=== PATIENT | female | born 1935 | race Caucasian/White ===

== ENCOUNTER 2016-08-15 18:00 | Inpatient (IN) | payer OTHER ==
[~2016-08-15] VITALS: Ht 152.4 cm; Wt 61.2 kg
[2016-08-15 19:14] LABS: microscopic required? YES; urine erythrocyte TRACE (NEGATIVE)
[2016-08-15 19:19] LABS: BASOPHIL % 0.5 % (0-2); PLATELET COUNT 164 x10^3mcL (130-400); RED CELL DISTRIBUTION WIDTH 13.6 % (11.5-14.5)
[2016-08-15 19:32] LABS: AMPHETAMINE QUAL UR NONE DETECTED (NEG <=1000)
[2016-08-15 19:37] LABS: ALBUMIN 3.8 g/dL (3.4-5.0); ALKALINE PHOSPHATASE 171 U/L (46-116); ALT/SGPT 15 U/L (14-59); AMYLASE 93 U/L (25-115); AST/SGOT 31 U/L (15-37); CALCIUM 9.5 mg/dL (8.5-10.1); CARBON DIOXIDE 24.5 mmol/L (21-32); CHLORIDE SERUM 103 mmol/L (98-107); CREATININE SERUM 1.5 mg/dL (0.6-1.0); GLUCOSE SERUM 390 mg/dL (74-106); HDL CHOLESTEROL 49 mg/dL (40-60); LIPASE 185 IU/L (73-393); SODIUM SERUM 136 mmol/L (136-145); T4(THYROXINE) 6.7 ug/dL (4.7-13.3); TOTAL PROTEIN, SERUM 8.1 g/dL (6.4-8.2)
[2016-08-15 19:39] LABS: CHOLESTEROL 127 mg/dL (<200)
[2016-08-15 19:40] LABS: POTASSIUM SERUM 6.3 mmol/L (3.5-5.1)
[2016-08-15] MEDS ORDERED: OMEPRAZOLE40 M1 PO (20:25)
[2016-08-15] MEDS ORDERED: TYLENOL WITH CO1 TA2 PO (20:25)
[2016-08-15] MEDS ORDERED: LOVASTATIN40 MG PO (20:26)
[2016-08-15] MEDS ORDERED: GLUCOTROL10 MG PO (20:26)
[2016-08-15] MEDS ORDERED: GEMFIBROZIL600 MG PO (20:26)
[2016-08-15] MEDS ORDERED: ZESTRIL20 MG PO (20:27)
[2016-08-15 22:12] VITALS: BP 172/79
[2016-08-15 22:30] VITALS: BP 172/79
[2016-08-15 22:55] VITALS: BP 154/67
[2016-08-15 23:39] LABS: MAGNESIUM 1.6 mg/dL (1.8-2.4); PHOSPHOROUS 3.6 mg/dL (2.5-4.9)
[2016-08-16 01:41] LABS: CALCIUM 9.3 mg/dL (8.5-10.1); CARBON DIOXIDE 23.9 mmol/L (21-32); CHLORIDE SERUM 108 mmol/L (98-107); CREATININE SERUM 1.2 mg/dL (0.6-1.0); GLUCOSE SERUM 220 mg/dL (74-106); SODIUM SERUM 142 mmol/L (136-145)
[2016-08-16 06:03] VITALS: BP 128/66
[2016-08-16 06:31] LABS: BASOPHIL % 0.6 % (0-2); PLATELET COUNT 140 x10^3mcL (130-400); RED CELL DISTRIBUTION WIDTH 13.7 % (11.5-14.5)
[2016-08-16 06:55] LABS: CALCIUM 9.2 mg/dL (8.5-10.1); CARBON DIOXIDE 21.9 mmol/L (21-32); CHLORIDE SERUM 108 mmol/L (98-107); CREATININE SERUM 1.1 mg/dL (0.6-1.0); GLUCOSE SERUM 209 mg/dL (74-106); MAGNESIUM 2.3 mg/dL (1.8-2.4); PHOSPHOROUS 3.4 mg/dL (2.5-4.9); POTASSIUM SERUM 4.5 mmol/L (3.5-5.1); SODIUM SERUM 142 mmol/L (136-145)
[2016-08-16 15:05] VITALS: BP 148/56
[2016-08-16 18:22] VITALS: BP 157/61
[2016-08-16 22:32] VITALS: BP 126/59
[2016-08-17 05:46] VITALS: BP 125/56
[2016-08-17 06:18] LABS: BASOPHIL % 0.4 % (0-2); PLATELET COUNT 135 x10^3mcL (130-400); RED CELL DISTRIBUTION WIDTH 13.4 % (11.5-14.5)
[2016-08-17 06:27] LABS: CALCIUM 8.6 mg/dL (8.5-10.1); CARBON DIOXIDE 19.6 mmol/L (21-32); CHLORIDE SERUM 108 mmol/L (98-107); CREATININE SERUM 1.1 mg/dL (0.6-1.0); GLUCOSE SERUM 187 mg/dL (74-106); POTASSIUM SERUM 4.4 mmol/L (3.5-5.1); SODIUM SERUM 142 mmol/L (136-145)
[2016-08-17 09:09] VITALS: BP 134/65
[2016-08-17] MEDS ORDERED: ECO81 PO (11:31)
[2016-08-17] MEDS ORDERED: LEVAQUIN250 M1 PO (11:37)
[2016-08-17] MEDS ORDERED: LAC PO (11:38)
[2016-08-17] MEDS ORDERED: NORCO1 TA2 PO (11:39)
[2016-08-17] MEDS ORDERED: COL100 PO (11:40)
[2016-08-17 13:28] VITALS: BP 134/65
== END 2016-08-17 14:55 | disposition home or self-care (01) | DRG 562 ==
LOC: ED 18:00 → DU 19:55
PROVIDERS: Emergency Medicine; Neuromusculoskeletal Medicine, Sports Medicine; ADMIT Family Medicine
PROC: 0HQ1XZZ Repair Face Skin, External Approach (ICD-10-PCS; 2016-08-15)
PROC: 2W38X2Z Immobilization of Right Upper Extremity using Cast (ICD-10-PCS; principal; 2016-08-16 13:45)
DX: S52.614A Nondisplaced fracture of right ulna styloid process, initial encounter for closed fracture (principal); N17.0 Acute kidney failure with tubular necrosis; N18.4 Chronic kidney disease, stage 4 (severe); E78.5 Hyperlipidemia, unspecified; S01.111A Laceration without foreign body of right eyelid and periocular area, initial encounter; S52.514A Nondisplaced fracture of right radial styloid process, initial encounter for closed fracture; E11.65 Type 2 diabetes mellitus with hyperglycemia; I12.9 Hypertensive chronic kidney disease with stage 1 through stage 4 chronic kidney disease, or unspecified chronic kidney disease; S80.02XA Contusion of left knee, initial encounter; S80.01XA Contusion of right knee, initial encounter; E87.5 Hyperkalemia; I16.0 Hypertensive urgency; E83.41 Hypermagnesemia; D64.9 Anemia, unspecified; Z79.4 Long term (current) use of insulin; Z79.84 Long term (current) use of oral hypoglycemic drugs; Z85.3 Personal history of malignant neoplasm of breast; W18.39XA Other fall on same level, initial encounter; Y93.89 Activity, other specified; Y92.098 Other place in other non-institutional residence as the place of occurrence of the external cause
CPT/HCPCS: 80307; 82962; 83880; 97110-GP; J1644; J1815; J1956; J2001; J2270; J3475; J3490; J7030; Q0092

== ENCOUNTER 2016-08-18 21:04 | Inpatient (IN) | payer OTHER ==
[~2016-08-18] VITALS: Ht 152.4 cm; Wt 73.2 kg
[~2016-08-18 21:04] MED LIST: COL100 PO; ECO81 PO; GEMFIBROZIL600 MG PO; GLUCOTROL10 MG PO; LAC PO; LEVAQUIN250 M1 PO; LOVASTATIN40 MG PO; NORCO1 TA2 PO; OMEPRAZOLE40 M1 PO; TYLENOL WITH CO1 TA2 PO; ZESTRIL20 MG PO
--- NOTE | 2016-08-18 21:46 | NUR ---
RECEIVED A 81 YEAR OLD FEMALE IN ROOM ORTHO BIB [facility] WITH C/O SHORTNESS OF BREATH STARTING AT 1900 TODAY. PER PT DAUGTHER, PT WAS DISCHARGED [place] [facility] [place] FOR UTI AND FACIAL LACERATION FROM A FALL. PT AAOX4, RESPIRATORY EVEN AND LABORIOUS. PT PLACED ON OXYGEN 4 L BAGGED MASK, FULL DELIVERY TECHNICIAN. CALL LIGHT WITHIN REACH, WILL CONTINUE TO MONITOR.
--- NOTE | 2016-08-18 22:16 | NUR ---
PT ON JOHANN IN POSITION OF COMFORT, AAOX4, RESP EVEN AND UNLABORED, ON FULL CM, OXYGEN AT 4L BAGGED MASK. FAMILY AT BEDSIDE. CALL LIGHT WITHIN REACH, WILL CONTINUE TO MONITOR.
--- NOTE | 2016-08-18 22:35 | NUR ---
PT PLACED ON 2 L OXYGEN VIA NC. PT AAOX4, RESP EVEN AND UNLABORED, IN POSITION OF COMFORT. CALL LIGHT WITHIN REACH, WILL CONTINUE TO MONITOR.
[2016-08-18 22:45] LABS: UA SPECIFIC GRAVITY 1.015 (1.005-1.035); microscopic required? YES; urine erythrocyte 1+ (NEGATIVE)
[2016-08-18 22:47] LABS: BASOPHIL % 0.2 % (0-2); PLATELET COUNT 148 x10^3mcL (130-400); RED CELL DISTRIBUTION WIDTH 12.9 % (11.5-14.5)
[2016-08-18 23:04] LABS: ALKALINE PHOSPHATASE 145 U/L (46-116); ALT/SGPT 18 U/L (14-59); AST/SGOT 37 U/L (15-37); BILIRUBIN TOTAL 0.55 mg/dL (0.20-1.00); CALCIUM 8.3 mg/dL (8.5-10.1); CARBON DIOXIDE 19.9 mmol/L (21-32); CHLORIDE SERUM 102 mmol/L (98-107); CREATININE SERUM 1.4 mg/dL (0.6-1.0); MAGNESIUM 1.4 mg/dL (1.8-2.4); POTASSIUM SERUM 4.1 mmol/L (3.5-5.1); SODIUM SERUM 135 mmol/L (136-145); TOTAL PROTEIN, SERUM 7.1 g/dL (6.4-8.2)
[2016-08-18 23:11] LABS: GLUCOSE SERUM 521 mg/dL (74-106)
[2016-08-19] VITALS (8 sets, daily range): BP systolic 113–142; BP diastolic 39–68
--- NOTE | 2016-08-19 00:25 | NUR ---
PER DR WASHINGTON, NO LONGER DOING CT WITH ANGIO DUE TO POOR RENAL FUNCTION.
--- NOTE | 2016-08-19 00:41 | NUR ---
PT MEDICATED FOR PAIN.
--- NOTE | 2016-08-19 00:54 | NUR ---
REPORT GIVEN TO DEB URBINA TO ASSUME CARE.
[2016-08-19 01:01] LABS: PHOSPHOROUS 3.7 mg/dL (2.5-4.9)
[2016-08-19 01:02] LABS: CHOLESTEROL/HDL RATIO 2.6
[2016-08-19 01:10] LABS: FREE T4 1.44 ng/dL (0.76-1.46); FREE THYROXINE INDEX 2.6 ug/dL (1.4-4.5); T4(THYROXINE) 6.9 ug/dL (4.7-13.3)
[2016-08-19 01:13] LABS: T3 TOTAL 0.71 ng/mL
--- NOTE | 2016-08-19 01:33 | NUR ---
RECEIVED PT FROM ED VIA SUSI. ORIENTED PT TO ROOM AND SURROUNDINGS. IV NOTED TO ASHWIN PATENT AND INTACT. TELE 19 PLACED ON PT READING SR WITH DEPRESSED ST SEGMENT. INSTRUCTED PT ON THE USE OF CALL LIGHT FOR ASSISTANCE. ENDORSED PT TO PRIMARY NURSE CARLITOS
--- NOTE | 2016-08-19 03:16 | NUR ---
NEW ADM. FROM ER. PLACED COMFORTABLY IN BED. WITH DAUGHTER AT THE BEDSIDE. RESP. EVEN AND UNLABORED. [address], LUNGS SOUNDS DIM. SAT. 94% NO DISTRESS NOTED. AFEBRILE AND VITAL SIGNS STABLE . ON TELE #19, MONITOR SHOWS SR WITH DEPRESSED ST SEGMENT.DENIES CHEST PAIN OR PRESSURE. ABD. SOFT, NON TENDER. BS ACTIVE. NO N/V NOTED. S/P FALL X1 WEEK AGO PER DAUGHTER, CAST TO RT ARM ABLE TO MOVE EXT. , FINGERS SWOLLEN, HAND ELEVATED ON PILLOW. ABRASION TO RT SIDE OF FACE AND FOREHEAD. ALEXIS INTACT. STARTED ON HEPARIN DRIP PER PROTOCOL FOR ELEVATED TROP. HEPARIN DRIP INFUSING AT 800UNITS ( 8ML/HR). PTT DUE AT 0830. KEPT COMFORTABLE. CALL LIGHT WITHIN REACH. WILL CONTINUE TO MONITOR.
--- NOTE | 2016-08-19 05:20 | NUR ---
IV SITE INFILTRATTED , DISCONT. NEW IV SITE RESTARTED ON LT WRIST WITH #22G ANGIO. HEPARIN DRIP AND IVF INTACT AND INFUSING. ASSISTED TO BSC, HAD X1 LARGE LOOSE BM. CLEANED AND KEPT COMFORTABLE. COMPLAINED OF GEN. BODY PAIN, 5/10, MEDICATED WITH NORCO PO ORDERED. WILL CONTINUE TO MONITOR.
[2016-08-19 06:05] LABS: BASOPHIL % 0.4 % (0-2); PLATELET COUNT 144 x10^3mcL (130-400); RED CELL DISTRIBUTION WIDTH 13.6 % (11.5-14.5)
[2016-08-19 06:17] LABS: CALCIUM 8.7 mg/dL (8.5-10.1); CARBON DIOXIDE 19.8 mmol/L (21-32); CHLORIDE SERUM 103 mmol/L (98-107); CREATININE SERUM 1.3 mg/dL (0.6-1.0); GLUCOSE SERUM 396 mg/dL (74-106); MAGNESIUM 1.9 mg/dL (1.8-2.4); POTASSIUM SERUM 3.6 mmol/L (3.5-5.1); SODIUM SERUM 137 mmol/L (136-145)
[2016-08-19 06:29] LABS: ALBUMIN 2.8 g/dL (3.4-5.0)
--- NOTE | 2016-08-19 06:32 | NUR ---
DUE MEDS GIVEN ORDERED, SIXTO. WELL. COMFORTABLE . NO COMPLAINTS OF PAIN OR ANY DISCOMFORT AT THIS TIME. [address] VIA MASK, REMAINS ON RT PROTOCOL. NO DISTRESS NOTED. DAUGHTER AT THE BEDSIDE, VERY SUPPORTIVE OF CARE. AFEBRILE AND VITAL SIGNS STABLE. WILL ENDORSE TO INCOMING NURSE.
--- NOTE | 2016-08-19 09:00 | NUR ---
PT ON BED, AWAKE, ALERT, AND ORIENTED. HAS NO COMPLAINT OF PAIN, SOB, OR DIZZINESS. RESPONDS WELL TO QUESTION AND ANSWER. PT IS LATVIAN SPEAKING. DAUGHTER AT BEDSIDE. DIMINISHED MELANIA BASES ON MASK O2 WITH 10L, SYMMETRICAL CHEST EXPANSION AND UNLABORED. ACTIVE BOWEL SOUNDS NOTED. ABRASIONS NOTED ON THE FOREHEAD WITH [address] ON THE R HAND. SIDE RAILS UP, CALL LIG WITHIN REACH, WILL CONTINUE TO MONITOR
--- NOTE | 2016-08-19 09:45 | NUR ---
PER DR'S ORDER. HEAPRIN DRIP HAS BEEN D/C. WILL CONTINUE TO MONITOR
--- NOTE | 2016-08-19 12:00 | NUR ---
PT'S ACCUCHECK SHOWED 221. PT AND PT'S DAUGHTER REFUSED COVERAGE. TO BE MADE AWARE
[2016-08-19 17:46] LABS: CALCIUM 8.7 mg/dL (8.5-10.1); CARBON DIOXIDE 23.5 mmol/L (21-32); CHLORIDE SERUM 104 mmol/L (98-107); CREATININE SERUM 1.4 mg/dL (0.6-1.0); GLUCOSE SERUM 251 mg/dL (74-106); POTASSIUM SERUM 3.2 mmol/L (3.5-5.1); SODIUM SERUM 140 mmol/L (136-145)
--- NOTE | 2016-08-19 18:24 | NUR ---
PT'S ACCUCHECK SHOWED 245. PT'S DAUGHTER STATED HAVE IT RECHECKED TONIGHT MAYBE IT WILL GO DOWN WITHOUT INSULIN
--- NOTE | 2016-08-19 19:58 | NUR ---
AWAKE AND RESPONSIVE TO VERBAL STIMULU, SLOW TO RESPOND. DAUGHTER AT BEDSIDE , DAUGHTER CLAIMED PT HAS GENERALIZED TREOMOR WHICH LASTED TO A MIN. PT DENIES ANY PAIN/DISCOMFORT AT THIS TIME. DR DEUTSCH AT BEDSIDE ASSESSSING PATIENT. PLACED CALL LIGHT [facility]. WILL DO FREQUENT VISUAL CHECK FOR SAFETY.
--- NOTE | 2016-08-19 22:15 | NUR ---
BP AT 2130 =120/39, WITH MAP=57, DR DEUTSCH MADE AWARE AND ORDERED TO REPEAT TO TAKE BP AT SITTING/STANDING POSITION WHICH IS 113/39 WITH MAP=68. STATED TOMAITNAINED IVF NS AT 10ML/HR FOR NOWN AND WILL READJUST THE RATE ACCORDINGLY. WILL CONTINUE TO MONITOR. NO FURTHER TREMORS NOTED.
[2016-08-20 05:43] VITALS: BP 129/46
--- NOTE | 2016-08-20 06:36 | NUR ---
ALL DUE MEDICATIONS GIVEN AND WELL TOLERATED. NO S/S OF ASPIRATION NOTED. KEPT CLEAN AND DRY. ALL NEEDS ATTENDED.
[2016-08-20 06:46] LABS: CALCIUM 8.4 mg/dL (8.5-10.1); CARBON DIOXIDE 24.5 mmol/L (21-32); CHLORIDE SERUM 106 mmol/L (98-107); CREATININE SERUM 1.4 mg/dL (0.6-1.0); GLUCOSE SERUM 97 mg/dL (74-106); MAGNESIUM 1.6 mg/dL (1.8-2.4); PHOSPHOROUS 3.4 mg/dL (2.5-4.9); POTASSIUM SERUM 3.2 mmol/L (3.5-5.1); SODIUM SERUM 141 mmol/L (136-145)
[2016-08-20 06:47] LABS: BASOPHIL % 0.3 % (0-2); PLATELET COUNT 160 x10^3mcL (130-400)
--- NOTE | 2016-08-20 09:17 | NUR ---
PT ON BED, AWAKE, ALERT, AND ORIENTED. HAS NO COMPLAINT OF PAIN, SOB, OR DIZZINESS. RESPONDS WELL TO QUESTION AND ANSWER. PT IS TURKISH SPEAKING. DAUGHTER AT BEDSIDE. DIMINISHED MELANIA BASES ON NASAL C WITH 2L, SYMMETRICAL CHEST EXPANSION AND UNLABORED. ACTIVE BOWEL SOUNDS NOTED. ABRASIONS NOTED ON THE FOREHEAD WITH [address] ON THE R HAND. SIDE RAILS UP, CALL LIGH WITHIN REACH, WILL CONTINUE TO MONITOR
--- NOTE | 2016-08-20 12:00 | NUR ---
PT'S ACCUCHECK SHOWED 273. 9 UNITS OF REGULAR INSULIN GIVEN COVERAGE.
--- NOTE | 2016-08-20 12:29 | NUR ---
PER DR'S ORDER HEPARIN DRIP STARTED AT 1200 U/HR. WITH A LOADING DOSE OF 5300 UNITS.. WILL CONTINUE TO MONITOR
[2016-08-20 13:56] VITALS: BP 100/39
[2016-08-20 18:55] VITALS: BP 114/51
--- NOTE | 2016-08-20 19:30 | NUR ---
RECEIVED REPORT FROM DEB RAMIREZ. PT RESTING COMFORTABLY IN BED IN NO ACUTE DISTRESS OR DISCOMFORT. AAOX4. DENIES OF PABON/DIZZINESS. ON TELE MON [address] WAVE. DENIES OF ANY CHEST DISCOMFORT. PER PULSES MOD. NEG ON EDEMA. ON 2 L NC WITH SAT OF 96%. BREATHING EVENLY AND UNLABORED. NO SOB NOTED. LUNGS DIM. BS ACTIVE. LAST BM 07/22/16 FORMED STOOL PER PT. VOIDS FREELY WITHOUT ANY PAIN. GEN WEAKNESS. AMB ASSIST. PT SP FALL AT HOME AND HAS A R ARM CAST. PT ALSO ACQUIRED ABRASION ON R FOREHEAD WITH 2 ALEXIS, DRESSING APPLIED, CDI. ALSO ACQUIRED R CHEEK ABRASION THAT IS COATER HELPER, WITH NO DRAINAGE NOTED. ADMITS TO L SHOULDER PAIN. WILL MEDICATE PER PRN ORDER. IV ON L HAND INFILTRATED AND REPLACED WITH 20 G ON RFA. PT ON HEPARIN DRIP RUNNING AT 1200 U/HR. WILL WAIT FOR THE NEXT PTT RESULT. DAUGHTER IS ON THE BEDSIDE. SAFETY MEASURES ENSURED. CALL LIGHT WITHIN REACH. WILL CONT TO MONITOR PT.
--- NOTE | 2016-08-20 19:45 | NUR ---
NOTIFIED BY THE LAB WITH PTT VALUE OF >150 PER HEPARIN PROTOCOL GUIDELINE. HOLDING THE HEPARIN DRIP AT THIS TIME. WILL ORDER PTT AT 2145. SAFETY MEASURES ENSURED. DAUGHTER IS ON THE BEDSIDE. CALL LIGHT WITHIN REACH.
[2016-08-20 21:25] VITALS: BP 121/76
--- NOTE | 2016-08-20 23:06 | NUR ---
NOTIFIED BY LAB WITH PTT OF 68.4. DECREASING INFUSION TO 1100 UNITS/HR. VERIFIED WITH GEOVANY BOYD. WILL DRAW NEXT PTT AT 0306 OF 08/21/16. SAFETY MEASURES ENSURED. CALL LIGHT WITHIN REACH.
[2016-08-21 01:02] VITALS: Ht 152.4 cm; Wt 73.2 kg
[2016-08-21 03:47] LABS: PLATELET COUNT 192 x10^3mcL (130-400); RED CELL DISTRIBUTION WIDTH 13.3 % (11.5-14.5)
[2016-08-21 04:06] LABS: CALCIUM 8.5 mg/dL (8.5-10.1); CARBON DIOXIDE 25.9 mmol/L (21-32); CHLORIDE SERUM 106 mmol/L (98-107); CREATININE SERUM 1.8 mg/dL (0.6-1.0); GLUCOSE SERUM 64 mg/dL (74-106); MAGNESIUM 2.5 mg/dL (1.8-2.4); POTASSIUM SERUM 3.3 mmol/L (3.5-5.1); SODIUM SERUM 142 mmol/L (136-145)
--- NOTE | 2016-08-21 04:09 | NUR ---
NOTIFIED BY LAB, PT'S PTT AT 85.0. DECREASED INFUSION RATE TO 1000 U/HR. VERIFIED WITH DEB COTTO. SAFETY MEASURES ENSURED. PAIN MANAGEMENT ENFORCED. DAUGHTER STAYED THROUGH OUT THE NIGHT AND ON THE BEDSIDE. CALL LIGHT WITHIN REACH. WILL ORDER PTT AT 0809 OF TODAY.
[2016-08-21 06:33] VITALS: BP 114/40
--- NOTE | 2016-08-21 08:28 | NUR ---
RECIEVED REPORT FORM SHA RN, ASSESSMENT MADE, FAMILY MEMEBR AT THE BEDSIDE. PT IS AOX4, RR EVEN AND UNLABORED HR WNL, PULSES PRESENT NO S/S OF EDEMA. BOWEL SOUNDS ACTIVE IN 4 QAUDRANTS, PT IS CONTINENT WITH ASSISTANCE TO BEDSIDE COMODE, PT HAS GENERALIZED WEAKNESS WITH ASSITED AMBULATION, ABRASION ON RIGH FOREHEAD WITH 2 ALEXIS, ABRASION ON RIGHT CHEEK WITH HEALING SCAB, ABRASION ON RIGHT FOREARM WITH HEALING SCAB, ABRASION ON RIGHT KNEE WITH HEALING SCAB PT DENIES PAIN AT THE MOMENT, IV SIT IS PATENT AND INTACT, PT ABLE TO MAKE NEED KNOWN CALL LIGHT WITH IN REACH, WILL CONTINUE TO MONITOR FOR CHANGES
[2016-08-21 09:10] VITALS: BP 107/35
--- NOTE | 2016-08-21 10:45 | NUR ---
PT PTT WAS 84.4 PER HEPARIN PROTOCOL ADJUSTED THE RATE TO 900UNITS/HR WILL RECHCK PTT IN 4 HOURS
[2016-08-21 13:40] VITALS: BP 115/40
--- NOTE | 2016-08-21 15:35 | NUR ---
PT PTT WAS 69.9 PER HEPARIN PROTOCOL ADJUSTED RATE TO 800U/HR WILL RECHECK IN [address]RS[address] K PAD IN PLACE ON LEFT SHOULD PE VICKY WALLACE
[2016-08-21 17:06] VITALS: BP 121/50
--- NOTE | 2016-08-21 17:30 | NUR ---
PT IN BED RESTING QUIETLY, FAMILY AT BEDSIDE, MEDS GIVEN PER ORDER, DENIES PAIN, IV SITE INTACT, CALL LIGHT WITHIN REACH
--- NOTE | 2016-08-21 19:30 | NUR ---
RECEIVED REPORT FROM DEB RAMIREZ. PT RESTING IN BED IN NO ACUTE DISTRESS. AAOX4. DENIES OF PABON/DIZZINESS. ON TELE MON [address] WITH DEPRESSED T WAVE. PT STILL ON HEPARIN DRIP RUNNING AT 800 UNITS/HR. PER PULSES MOD. NEG ON EDEMA. IN RA WITH SAT OF 94%. BREATHING EVENLY AND UNLABORED. NO SOB. LUNGS DIM. LAST BM 08/20/16 FORMED STOOL PER PT. PT VOIDS FREELY ON THE BSC WITHOUT ANY PAIN. GEN WEAKNESS. AMB ASSIST. INTERM COMPLAINS OF R ARM ARTHRITIS PAIN. SP ON 08/15/16 AND ACQUIRED A WRIST FX. PT HAS RFA CAST. PT ALSO ACQUIRED R FOREARM ABRASION WITH TWO ALEXIS COVERED WITH DSNG THAT IS CDI. PT ALSO HAS R CHEEK AND KNEE ABRASION THAT IS MCKENZIE WITH NO DRAINAGE NOTED. K PAD APPLIED ON L SHOULDER. IV ON LFA PATENT. SAFETY MEASURES ENSURED. FAMILY IS ON THE BEDSIDE. CALL LIGHT WITHIN REACH. INSTRUCTED PT AND FAMILY TO CALL FOR ANY NEEDS/ASSISTANCE. WILL CONT TO MONITOR PT.
[2016-08-21 21:54] VITALS: BP 124/58
--- NOTE | 2016-08-21 22:16 | NUR ---
RECEIVED CALL FROM THE LAB REGARDING PT'S PTT RESULT WITH THE VALUE OF 59.5 WITH NO CHANGE IN INFUSION RATE NEEDED PER HEPARIN PROTOCOL GUIDELINE. WILL ORDER ANOTHER PTT LAB DRAW AT 0216 OF 08/22/16. SAFETY MEASURES ENSURED. DAUGHTER IS ON THE BEDSIDE. CALL LIGHT WITHIN REACH.
[2016-08-22 04:29] LABS: BASOPHIL % 0.7 % (0-2); PLATELET COUNT 201 x10^3mcL (130-400); RED CELL DISTRIBUTION WIDTH 14.8 % (11.5-14.5)
[2016-08-22 04:47] LABS: CALCIUM 8.3 mg/dL (8.5-10.1); CARBON DIOXIDE 23.6 mmol/L (21-32); CHLORIDE SERUM 104 mmol/L (98-107); CREATININE SERUM 2.1 mg/dL (0.6-1.0); GLUCOSE SERUM 106 mg/dL (74-106); PHOSPHOROUS 4.5 mg/dL (2.5-4.9); POTASSIUM SERUM 4.8 mmol/L (3.5-5.1); SODIUM SERUM 138 mmol/L (136-145)
--- NOTE | 2016-08-22 04:57 | NUR ---
NOTIFED BY LAB REGARDING PT'S PTT VALUE OF 51.5. VALUE ON THERAPEUTIC LEVEL WITH NO CHANGE IN INFUSION NEEDED. NEXT PTT LAB WILL BE ORDERED AT 08/23/16 AT 0500. SAFETY MEASURES ENSURED. CALL LIGHT WITHIN REACH.
--- NOTE | 2016-08-22 05:30 | NUR ---
PT SLEPT COMFORTABLY THROUGH OUT THE NIGHT. HAD PERIODS OF LABORED BREATHING AND GIVEN BREATHING TREATMENTS. DR DEUTSCH AWARE. DAUGHTER STAYED THROUGH OUT. NEXT PTT LAB ORDERED AT 0500 AT 08/23/16. SAFETY MEASURES ENSURED. CALL LIGHT WITHIN REACH.
[2016-08-22 06:07] VITALS: BP 108/44
--- NOTE | 2016-08-22 07:30 | NUR ---
PATIENT IS SITTING UP IN BED WITH DAUGHTER AT BEDSIDE. ALERT ORIENTED, FIJIAN SPEAKING, DOES SPEAK SOME AMERICAN. HEPARIN DRIP INFUSING WELL AT 800U/HR AND NS AT 10ML HR TO LEFT FA. CAST NOTED ON RT ARM. FINGERS WARM TO TOUCH AND PATIENT IS ABLE TO WIGGLE FINGERS, CAP REFILL GOOD. ASSISTED UP TO THE BSC PRN. SUTURES ON RT SIDE OF FOREHEAD GAMEROOM TECHNICIAN DRY AND INTACT. K-PAD TO SHOULDER IN PLACE. PATIENT AWAITING VQ SCAN THIS AM. DENIES ANY PAIN OR DISCOMFORT. O2 ON AT 2L VIA N/C SAT 96%. WILL CONTINUE TO MONITOR.
--- NOTE | 2016-08-22 08:05 | NUR ---
DR CASTRO AND MEDICAL TEAM INTO SEE PATIENT AND DISCUSS PLAN OF CARE.
[2016-08-22 09:22] VITALS: BP 107/36
--- NOTE | 2016-08-22 12:43 | NUR ---
P.T. NOTES EVAL30' PVEX2 [id number] GCODE:[id number] TUG SCORE: 13 SECS PT WAS SEEN FOR P.T. MIYA (LUISE) 1ST ATTMEPT PT WASN'T IN THE ROOM HAVING A VQ SCAN, UPON RETURN PT WAS SEATED ON EDGE OF BED WITH O2 INTACT AT 2L SHARDA GALICIA PRESENT AND BOTH VERY EAGER TO PARTICIPATE WITH P.T. PT CAME FROM HOME RECENTLY D/C FROM HOSPITAL D/T FALL; THEN HAD C/O SOB S: PT REPROTS OF BILAT SHOULDER PAIN AT 8/10 ON A SUBJ PAIN SCALE NRSG MADE AWRE AND WILL GIVE MEDS. O: PLS SEE EVAL NOTE SPO2 BEFORE: 97% ON 2L VIA NC; AFTER GAIT ON ROOM AIR: SPO2 AT 94-95% NO C/O DYSPNEA A: PT EDUCATED ON USE INCENTIVE SPIROMETER AND ENERGY CONSERVATION TECHNIQUES UPON DC TO HOME AND VERBALIZED GOOD UNDERSTANDING. PT PRESENTS WITH STEADY LINEAR GAIT AND WITH DIRECITONAL CHANGES FOR COMPENSATION PT FURTHER DECREASES GAIT SPEED. PT PREFERS TO SIT UP ON EDGE OF BED WITH PILLOWS IN PLACE FOR SUPPORT AND ELEVATION OF RT UE. PT AND FAMILY VERY GRATEFUL FOR CARE. P: PT WOULD BEENFIT FROM HOME HEALTH FOR SAFETY MARTYAL
[2016-08-22 13:31] VITALS: BP 126/41
--- NOTE | 2016-08-22 16:34 | NUR ---
VQ SCAN NEGATIVE. HEPARIN DRIP DC'D ORDERED. PATIENT MEDICTED X 1 WITH NORCO PO FOR RT ARM PAIN WITH GOOD RELIEF. DAUGHTER AT BEDSIDE. NO ACUTE DISTRESS NOTED. PATIENT AMBULATED WITH P.T. TODAY AND TOLERATED WELL.
[2016-08-22 17:03] VITALS: BP 113/46
--- NOTE | 2016-08-22 18:07 | NUR ---
PATIENT IS SITTIING UP ON THE SIDE OF THE BED EATING DINNER TRAY. DAUGHTER AT BEDSIDE. NO ACUTE DISTRESS NOTED. NO FURHTER C/O PAIN AFTER NORCO PO WS GIVEN. WILL ENDORSE TO NOC NURSE.
--- NOTE | 2016-08-22 18:18 | NUR ---
I HAVE REVIEWED THE DATA COLLECTION BY JUDITH (NAME): TANA VERMA ENTERED ON (DATE/TIME): 08/22/16 I CONCUR WITH THE DATA AND ANY EXCEPTIONS OR COMMENTS ARE LISTED BELOW:
--- NOTE | 2016-08-22 19:18 | NUR ---
PATIENT SITTIING UP IN BED. C/O CHEST PAIN 8/10 ON THE PAIN SCALE. TELE 19 ST HR 109, B/P 117/60. NTG GIVEN SL PATIENT GETTING RELIEF. WILL ENDORSE TO NOC NURSE.
--- NOTE | 2016-08-22 20:00 | NUR ---
RECEIVED PT SITTING UP IN BED IN NO FURTHER DISTRESS. DAUGHTER AT BEDSIDE. CHEST PAIN IS SUBSIDING. BREATHING EASILY ON 2L O2 VIA N/C. BS ACTIVE IN ALL FOUR QUADS. NO ABD PAIN NOTED. RIGHT ARM WITH HARD CAST. CIRCULATION INTACT. PT HAS SUTURES TO RIGHT SIDE OF FOREHEAD, DENTURE TECHNICIAN, CDI. ABRASIONS TO RIGHT CHEEK. RIGHT KNEE WITH ABRASION, ALL DENTURE TECHNICIAN, CDI. VOIDING FREELY WITH BSC. IVF TKO TO LEFT ARM. SHIFT ASSESSMENT COMPLETED. CALL LIGHT WITHIN REACH. WILL CONTINUE TO MONITOR CLOSELY.
[2016-08-22 21:35] VITALS: BP 125/42
--- NOTE | 2016-08-22 22:00 | NUR ---
ALL DUE MEDS GIVEN ORDERED. PT C/O NAUSEA, MEDICATED WITH ZOFRAN. DAUGHTER REMAINS AT BEDSIDE. WILL CONTINUE TO MONITOR CLOSELY.
--- NOTE | 2016-08-23 00:40 | NUR ---
PT C/O PAIN TO LEFT ARM, MEDICATED WITH NORCO ORDERED. PT SITTING UP IN BED, ASSISTED PT TO BSC AT THIS TIME. WILL CONTINUE TO MONITOR FRANK.
[2016-08-23 06:07] VITALS: BP 111/59
[2016-08-23 06:16] LABS: CALCIUM 8.7 mg/dL (8.5-10.1); CARBON DIOXIDE 19.8 mmol/L (21-32); CHLORIDE SERUM 97 mmol/L (98-107); CREATININE SERUM 2.3 mg/dL (0.6-1.0); GLUCOSE SERUM 204 mg/dL (74-106); SODIUM SERUM 129 mmol/L (136-145)
[2016-08-23 06:22] LABS: POTASSIUM SERUM 5.7 mmol/L (3.5-5.1)
--- NOTE | 2016-08-23 06:26 | NUR ---
K 5.7, DR CHRISTIE MADE AWARE, AWAITING NEW ORDERS.
--- NOTE | 2016-08-23 07:00 | NUR ---
PT C/O PAIN TO LEFT SHOULDER AREA, MEDICATED WITH NORCO ORDERED. ALL DUE MEDS GIVEN ORDERED. FSBS IS 190, 3 UNITS REGULAR INSULIN GIVEN. IVF CHANGED TO NS AT 100ML/HR. FAMILY AT BEDSIDE. WILL ENDORSE TO INCOMING SHIFT.
--- NOTE | 2016-08-23 07:30 | NUR ---
PATIENT IS IN BED, AWAKE ALERT AND ORIENTED. DAUGHTER AT BEDSIDE. CAST NOTED ON RIGHT ARM FINGERS WARM TO TOUCH ABLE TO WIGGLE FINGERS. IVF INFUSING WELL. PATIENT C/O FEELING NAUSEATED. WILL BE MEDICATED WITH ZOFRAN IV BY ATIF BOYD. LUNGS DIMINISHED, ON O2 AT 2L VIA N/C. I.S. AT BEDSIDE R.T. PROTOCOL IN PLACE.SUTURES NOTED MCKENZIE ON RT FOREHEAD. ABRASION ON RT CHEEK RT KNEE. TRACE EDEMA NOTED MELANIA FEET. WILL CONTINUE TO MONTIOR.
--- NOTE | 2016-08-23 08:00 | NUR ---
DR LOAIZA AND MEDICAL TEAM INTO SEE PATIENT AND DISCUSS PLAN OF CARE.
--- NOTE | 2016-08-23 10:00 | NUR ---
I HAVE REVIEWED THE DATA COLLECTION BY JUDITH (NAME):TANA VERMA ENTERED ON (DATE/TIME):08/23/16 1000 AM I CONCUR WITH THE DATA AND ANY EXCEPTIONS OR COMMENTS ARE LISTED BELOW:
--- NOTE | 2016-08-23 10:00 | NUR ---
PATIENT'S PLAN OF CARE WAS DISCUSSED AND REVIEWED WITH FAMILY SPECIALIST:TANA VERMA
[2016-08-23 10:15] VITALS: BP 122/52
[2016-08-23 12:59] VITALS: BP 118/41
--- NOTE | 2016-08-23 15:11 | NUR ---
PATIENT WAS OOB AND AMBLTED WITH WALKER AND P.T. THIS AFTERNOON. NO FURHTER C/O N/V AT THIS TIME.
--- NOTE | 2016-08-23 16:28 | NUR ---
PT NOTES TIME: 3094-2145 TE3',TA8',GT12',PVE((2)2 ATTEMPTS) S:CHART REVIEWED AND CLEARED FOR PT BY RN. PATIENT SIDELINE RESTING WITH DAUGHTER AT BEDSIDE. PATIENT EXPRESSED IF POSSIBLE TO RETURN LATER D/T FEELING NAUSEA (PREMEDICATED) PVEx1. RETURNED TO PATIENTS ROOM TO ATTEMPT THERAPY, BUT DAUGHTER ASKED IF POSSIBLE TO RETURN IN ABOUT 30MIN, "SHE JUST FELL ASLEEP" PER DAUGHTER (PVEx1). RETURNED TO PATIENTS ROOM TO RESUME THERAPY PATIENTS 2 DAUGHTERS AT BEDSIDE. PATIENT DENIES NAUSEA AND 8/10 L SHOULDER PAIN (RN MADE AWARE AND WILL MEDICATE ACCORDINGLY). PATIENT AGREEABLE TO PARTICIPATE IN THERAPY. IV LINE INTACT. O: BED: N/T PATIENT SITTING UP AT EOB. TRANSFER: MIN SIT<->STAND WITH VC'S FOR PROPER HAND PLACEMENT FOR PUSHOFF AND PROXIMITY TO FWW. GAIT: MIN/CGA 50'x1 WITH IV POLE IN TOW. PATIENT LIMITED D/T GENERAL FATIGUE AND GENERAL WEAKNESS. OCCASIONAL REMINDERS ON POSTURAL AWARENESS, ENERGY CONSERVATION AND PACING. SPO2 VIA N/C ON 2LPM 97%, ON RA POST GAIT 92-93%. TE: SEATED KNEE EXT/FLEX WITH ANKLE DF/PF, SHOULDER SHRUGS/CIRCLES (ALL TOLERATED) PATIENT EDUCATED ON ENERGY CONSERVATION, PACING, TRANSFER SEQUENCING AND SAFETY WITH GOOD FOLLOW THRU. PATIENT AND FAMILY COOPERATIVE AND APPRECIATIVE OF PT CARE, RN MADE AWARE. P:CONT WITH POC, PROGRESS DISCUSSED WITH PRIMARY PT.
[2016-08-23 17:02] LABS: CALCIUM 8.4 mg/dL (8.5-10.1); CARBON DIOXIDE 20.7 mmol/L (21-32); CHLORIDE SERUM 98 mmol/L (98-107); CREATININE SERUM 2.3 mg/dL (0.6-1.0); GLUCOSE SERUM 123 mg/dL (74-106); POTASSIUM SERUM 5.4 mmol/L (3.5-5.1); SODIUM SERUM 130 mmol/L (136-145)
--- NOTE | 2016-08-23 18:03 | NUR ---
PATIENT SITTING UP IN BED EATING DINNER TRAY. FAMILY MEMBER AT BEDSIDE. IV SITE INFILTRATED. WILL RESTART IV WHEN PATIENT IS FINISHED EATING. MEDICATED FOR C/O LEFT SHOULDER PAIN WITH NORCO PO WITH GOOD RELIEF. WILL CONTINUE TO VERNELL.
[2016-08-23 18:25] VITALS: BP 117/46
--- NOTE | 2016-08-23 18:39 | NUR ---
PATIENT'S IV SITE SLIGHTLY SWOLLEN. ICE PACK APPLIED AND NEW IV STARTED. IVF INFUSING WELL. WILL ENDORSE TO [facility] NURSE.
--- NOTE | 2016-08-23 19:40 | NUR ---
RECEIVED PT IN BED WITH DAUGHTER AT BEDSIDE. PT IS AWAKE, ALERT, ORIENTED X4. SPEECH CLEAR, MALTESE. ABLE TO MAKE NEEDS KNOWN. TELE 19 SHOWS NSR. LUNG SOUNDS DIMINISHED. BREATHING IN NO DISTRESS WITH 2L O2 VIA N/C. BS ACTIVE IN ALL FOUR QUADS. NO BM NOTED AT THIS TIME. PT USES BSC WITH ASSISTANCE. PT HAS TRACE EDEMA TO BILATERAL FEET, ELEVATED WITH PILLOW. RIGHT ARM WITH CAST, CIRCULATION INTACT. PT C/O MILD LEFT SHOULDER PAIN, PT WAS MEDICATED WITH NORCO PER DAYSHIFT. RIGHT FOREHEAD NOTED WITH SUTURES, MCKENZIE. ABRASION/BRUISES TO RIGHT FACIAL CHEEK AND RIGHT KNEE, FEATHER BALER. IVF INFUSING NS AT 100ML/HR TO LFA. SHIFT ASSESSMENT COMPLETED. CALL LIGHT WITHIN REACH. WILL CONTINUE TO MONITOR FRANK.
[2016-08-23 21:32] VITALS: BP 126/51
--- NOTE | 2016-08-23 22:00 | NUR ---
PT HAVING DIFFICULTY BREATHING, SOB, INCREASED RESPIRATIONS, APPEARS DIAPHORETIC, NAUSEA, VOMITTING X1, PAIN TO LEFT SHOULDER, CHEST AREA, TRACE EDEMA TO BLE, >FEET. RT AND DR CHRISTIE AT BEDSIDE. DR CHRISTIE WITH NEW ORDERS. DECREASE IVF TO 10ML/HR, ABG'S, CXR, AND EKG. DAUGHTER AT BEDSIDE. WILL CONTINUE TO MONITOR CLOSELY.
--- NOTE | 2016-08-23 23:05 | NUR ---
PT SITTING UP IN BED, NO LONGER SOB, BREATHING APPEARS TO BE IMPROVING. AWAITING CXR AND EKG.
--- NOTE | 2016-08-23 23:30 | NUR ---
TRANSFERRED PT TO ICU ON 4LPM NC WITHOUT INCIDENT. PLACED ON CPAP UPON ARRIVAL FOR INCREASED WOB. ABG TO FOLLOW. WILL MONITOR.
--- NOTE | 2016-08-23 23:37 | NUR ---
REPORT RECEIVED FROM DBE PEDERSON AT THIS TIME. PT ARRIVED ON UNIT WITH RN AND RT AT BEDSIDE. PT MOVED TO BED 4 AND SET UP ON CARDIAC MONITORING. BREATHING LABORED AND RAPID AT THIS TIME. PT PLACED ON BIPAP. ASSESSMENT PREFORMED AT THIS TIME.
--- NOTE | 2016-08-23 23:46 | NUR ---
PT SOB, WITH INCREASED DIFFICULTY BREATHING, RESPIRATIONS OVER 30. TRANSFER PT TO ICU FOR HIGHER LEVEL OF CARE. REPORT GIVEN TO ICU NURSE WIN. PT LEAVES WITH DAUGHTER AT BEDSIDE.
[2016-08-24] VITALS: BP 131/72
[2016-08-24 03:30] VITALS: BP 133/57
[2016-08-24 05:44] LABS: BASOPHIL % 0.4 % (0-2); PLATELET COUNT 243 x10^3mcL (130-400); RED CELL DISTRIBUTION WIDTH 15.2 % (11.5-14.5)
[2016-08-24 05:49] LABS: CALCIUM 8.4 mg/dL (8.5-10.1); CARBON DIOXIDE 20.7 mmol/L (21-32); CHLORIDE SERUM 96 mmol/L (98-107); CREATININE SERUM 2.3 mg/dL (0.6-1.0); GLUCOSE SERUM 224 mg/dL (74-106); PHOSPHOROUS 6.2 mg/dL (2.5-4.9); SODIUM SERUM 128 mmol/L (136-145)
[2016-08-24 05:50] LABS: POTASSIUM SERUM 5.9 mmol/L (3.5-5.1)
--- NOTE | 2016-08-24 07:05 | NUR ---
RECEVIED BEDSIDE REPORT FROM DEB WALDEN. ALL QUESTIONS AND CONCERNS ADDRESSED AT THIS TIME. WILL ASSUME CARE. PT IS IN BED 4 IN SEMI FOWLERS. AWAKE, ALERT, AND ORIENTATED X4. GSC OF 15. PT IS ON BIPAP ON 40%. COMPLAINS OF SOB. WILL TREAT APPROPIATLY. PT SKIN IS WARM DRY AND LOVE. BLE+BUE PULSES EQUAL AND MODERATE. BESIDES THE COMPLAIN OF SOB, SHE HAS NO OTHER COMPLAINT OF ACUTE DISTRESS. WILL CONTINUE TO MONITOR.
[2016-08-24 07:15] VITALS: BP 123/51
--- NOTE | 2016-08-24 08:46 | NUR ---
, RESIDENTS AND NATURE PHOTOGRAPHER PMA ROUNDING AT THIS TIME. TO ORDER REPEAT ABG. WILL CONTINUE TO MONITOR AT THIS TIME.
--- NOTE | 2016-08-24 08:57 | NUR ---
AT BEDSIDE. UPDATES PROVIDED. DR TO PLACE PT ON HIGHFLOW. WILL CONTINUE TO MONITOR.
--- NOTE | 2016-08-24 09:14 | NUR ---
FELICITY PHAM AT BEDSIDE FOR ABG.
--- NOTE | 2016-08-24 09:46 | NUR ---
RT BLEVINS AT BEDSIDE. ROMOVING BIPAP AND PLACE ON HIGH FLOW O2 VIA NC.
[2016-08-24 11:00] VITALS: BP 118/52
--- NOTE | 2016-08-24 12:37 | NUR ---
AT BEDSIDE, UPDATES PROVIDED AT THIS TIME. DR TO DC PRILOSEC AND PHOS-LOW AND TO START PEPCID AND START 80 MG IV LASIX DAILY AND REPEAT BNP FOR TOMORROW MORNING. WILL CONTINUE TO MONITOR AT THIS TIME.
--- NOTE | 2016-08-24 14:30 | NUR ---
RT BLEVINS AT BEDSIDE, TITRATED FIO2 DOWN FROM 40% TO 35%. WILL CONTINUE TO MONITOR. NO COMPLAINTS OR SIGNS OF ACUTE DISTRESS AT THIS TIME.
--- NOTE | 2016-08-24 15:10 | NUR ---
REPORT GIVEN TO MST DEB PATTERSON BY DEB RAJPUT. ALL QUESTIONS AND CONCERNS ADDRESSED AT THIS TIME. WILL ENDORSE ALL CARE UPON ARRIVAL. PT ROOM 250B.
--- NOTE | 2016-08-24 15:40 | NUR ---
RECEIVED ICU TRANFER. PT IS A/A/OX4 DENIES PABON. RESP EVEN AND UNLABORED WITH DIMINISHED BS BILAT. ON HI FLOW O2 AT 25L WITH FIO2 OF 40%. ON RT PROTOCOL. PLACED ON TELE #22 SHOWING NSR WITH BBB. DENIES ANY CP/PRESSURE AT THIS TIME. NOTED WITH +1 EDEMA TO BUE AND BLE IV TO LFA. ABD SOFT, NONTENDER WITH +BS PT STATES URGE TO HAVE BM. WILL ASSIST TO BSC. PT WITH F/C TO GRAVITY WITH YELLOW URINE. GEN WEAKNESS WITH SOB WITH ACTIVITY. ORIENTED TO ROOM AND CALL LIGHT SYSTEM. CALL LIGHT IN REACH NEEDS ATTENDED TO.
--- NOTE | 2016-08-24 17:14 | NUR ---
Initial Nutrition Assessment Dx: Acute Heart Failure, Acute Coronary Syndrome PMHx: DM, HTN and GERD PSHx: Cholecystectomy, R breast lumpectomy Labs: (08/24) Na 128, K 5.9, Cl 96, BG 224, BUN 57, Cr 2.3, Ca 8.4, Phos 6.2, H/H 8.4/26. A1c 8.7 Meds: Lasix, Glucotrol, Miralax, Volant, Iron, Humulin, Lactinex, Prilosec, Diet: CCHO, 60gms PO intake: 0% on 08/23, Ht: 60 in Wt: 137# BMI: 26.75 (overweight) IBW: 100# %IBW: 137% UBW: 130# Age: 81yo F Food Allergies: none Skin: s/p sutures right forehead Dixon Edema: Trace edema to BLE GI: Last BM: 08/24 4:30pm previously no BM for 5 days per pt Pt appears well nourished and on the bedside commode during visit. Will provide DM education upon follow up when patient is comfortable in bed. Pts right arm in cast and sling. Pt reports problem with nausea 2 days ago, resolved. Constipation x 5 days, resolved. Pt wears dentures but forgot them at home. Pt requested soft foods, no red meat, likes milk to drink and soup. Pt reports drinking one chocolate Glucerna shake daily at home and does not follow a DM diet. Pt reports that she does not have much of an appetite just yet. Transferred from [facility] to ICU on 08/23 for difficulty breathing. Previously on Bipap, currently on high flow O2 via NC; transferred back to [facility] today (08/24). When patient was in ICU, meal trays were not served to the patient per RN, to avoid risk of aspiration. Dr. Young paged and notified of recommendation. Estimated Nutritional Needs Based on actual body weight Energy: 5497-8678 kcal/d (25-30 kcal/kg) Protein: 50-62 g/d (0.8-1 g/kg) Fluid: 1500 ml/d (1 ml/kcal) or per doctor Nutrition Diagnosis: Biting and chewing difficulty related to patient forgetting dentures at home as evidenced by patient is missing upper teeth. Intervention 1. When medically appropriate, consider mechanical soft, chopped, CCHO diet. 2. 1 chocolate Boost Glucose Control daily, with dinner. 3. Pt may require assistance with food (right arm in sling) Monitor/Evaluate Goal: PO intake at least 75% of estimated needs Monitor: PO intake, Labs, GI function F/U in 3-5 days as MOD risk on 08/27-
--- NOTE | 2016-08-24 18:30 | NUR ---
PT RESTING COMFORTABLY AT THIS TIME. DENIES ANY DISCOMFORT. FAMILY AT BEDSIDE. IVF INFUSING. CONT WITH HI FLOW O2 AT 25L/MIN WITH FIO2 AT 40%.
--- NOTE | 2016-08-24 19:44 | NUR ---
PT IS A/O X4, VERBAL RESPONSIVE, ABLE TO TELL WHAT SHE NEEDS, LUNG SOUND DIMINISHED BILATERAL BASE, PT IS ON 25L/MIN 40% HIGH FLOW OX2 VIA NC, PO2 94%, DENY ANY SOB AT THIS TIME, PT IS ON TELE 22, NSR, DENY ANY CHEST PAIN OR DISCOMFORT, BOWEL SOUND PRESENT ALL 4 QUADRANTS, NO DISTENTION, NO TENDER. PEDAL PULSE PRESENT BOTH FEET, +1 EDEMA ON ALL 4 EXTREMITIS, RIGHT HAND HAS CAST ON, DENY ANY PAIN OR DISCOMFORT, IV AT LEFT FA, NO LEAKING, NO INFILTRATION. ALL ADLS ASSIST, ALL NEED MET, CALL LIGHT IN REACH, WILL CONTINUE TO MONITOR.
[2016-08-24 22:20] VITALS: BP 121/43
[2016-08-25] VITALS (7 sets, daily range): BP systolic 102–125; BP diastolic 35–90
--- NOTE | 2016-08-25 05:05 | NUR ---
PT IS SLEEPING, WITH BIPAP IS ON, NO RESPIRATORY DISTRESS, DENY ANY PAIN OR DISCOMFORT, IV AT LEFT FA, NO LEAKING, NO INFILTRATION. FAMILY AT BEDSIDE, ALL ADLS ASSIST, ALL NEED MET, CALL LIGHT IN REACH, WILL CONTINUE TO MONITOR.
[2016-08-25 06:26] LABS: BASOPHIL % 0.3 % (0-2); PLATELET COUNT 252 x10^3mcL (130-400)
--- NOTE | 2016-08-25 06:41 | NUR ---
PT HAD SUGAR 68, ASYMPTOMATIC, ORGANGE JUICE WITH 2 PACK SUGAR IS GIVEN, RECHECK IN 20 MINS, PT SUGAR IS 117, HOLD GLUCTROL FOR NOW, AND INFORM THE DR. ANDERSON, WILL CONTINUE TO MONITOR THE PT.
[2016-08-25 06:53] LABS: RED CELL DISTRIBUTION WIDTH 14.9 % (11.5-14.5)
[2016-08-25 06:54] LABS: ALKALINE PHOSPHATASE 96 U/L (46-116); ALT/SGPT 20 U/L (14-59); AST/SGOT 37 U/L (15-37); BILIRUBIN DIRECT 0.13 mg/dL (0.0-0.2); BILIRUBIN TOTAL 0.32 mg/dL (0.20-1.00); CALCIUM 8.4 mg/dL (8.5-10.1); CARBON DIOXIDE 22.6 mmol/L (21-32); CHLORIDE SERUM 99 mmol/L (98-107); CREATININE SERUM 2.4 mg/dL (0.6-1.0); GLUCOSE SERUM 65 mg/dL (74-106); MAGNESIUM 1.9 mg/dL (1.8-2.4); PHOSPHOROUS 5.5 mg/dL (2.5-4.9); POTASSIUM SERUM 4.3 mmol/L (3.5-5.1); SODIUM SERUM 133 mmol/L (136-145)
[2016-08-25 06:56] LABS: ALBUMIN 2.9 g/dL (3.4-5.0); TOTAL PROTEIN, SERUM 6.1 g/dL (6.4-8.2)
--- NOTE | 2016-08-25 07:40 | NUR ---
RECEIVED PT SITTING UP IN BED EATING BREAKFAST. PT IS A/A/OX4 DENIES PABON. RESP EVEN AND UNLABORED WITH DIMINISHED BS TO BILAT BASES. ON RT PROTOCOL, ON HI FLOW O2 AT 25L/MIN WITH FIO2 OF 40%M ON SPECIALIZED NC. USES BIPAP AT NIGHT. DENIES ANY CP/PRESSURE AT THIS TIME. NOTED WITH +1 EDEMA TO BLE/BUE. ABD SOFT, NONTENDER WITH ACTIVE BS X4. DENIES ANY N/V AT THIS TIME. VOIDING FREELY. NOTED WITH DRY SUTURES ABOVE RT EYEBROW TUBER MACHINE CUTTER. WITH HEALING LACERATION TO RT CHEEK BONE AND RT KNEE. SOME BRUISING NOTED TO RT SIDE OF FACE AND LUE. WITH CAST TO RFA. AMBULATORY WITH ASSISTANCE, UP TO BSC. CALL LIGHT IN REACH NEEDS ATTENDED TO WITH FAMILY AT BEDSIDE.
--- NOTE | 2016-08-25 10:40 | NUR ---
PAGE GATE SENT TO DR. AILEEN ESQUIVLE LO DBP WITH B/P 103/39 MAP 72.
--- NOTE | 2016-08-25 11:43 | NUR ---
lmt 2d echo done as ordered.daughter at bedside.
--- NOTE | 2016-08-25 11:45 | NUR ---
ERLINDA PAGE GATE SEND REGARDING CON TLOW DBP AT 108/37 WITH MAP OF [address]. COE AT THE STATION MADE AWARE OF SBP BELOW 40. NO NEW ORDER, PER MD SHE WILL CHECK IN ON PT WILL CONT TO MONITOR. PT OVERALL ASSYMPTOMATIC.
--- NOTE | 2016-08-25 13:04 | NUR ---
@1030: PLACED PT ON 5L OXYMIZER WITH SPO2 OF 98%. NO DISTRESS NOTED. HI FLOW PUT ON STAND-BY FOR THE PT. INFORMED CARE ASST. WILL CONT TO MONITOR
--- NOTE | 2016-08-25 14:41 | NUR ---
P.T. NOTES/RE EVAL [id number] Pt LIVES IN [facility] W/ , & DAUGHTER (HAS BIPOLAR D/O PER OTHER DAUGHTER, & CANNOT BE RELIABLE); AMBULATORY W/ SPC, HAS FWW; HOMEMAKER, HAS 8 CHILDREN; H/O FALLS. S: Pt WAS SEEN AWAKE & ALERT IN BED, SPEAKS BENGALI, ORIENTED TO SELF & PLACE, ABLE TO FOLLOW SIMPLE COMMANDS W/ TACTILE & GESTURE CUES, AJ TechR[employer] PHONE AVAILABLE, PREFERS DAUGHTER TO TRANSLATE AT THIS TIME (THIS DTR LIVES IN [place]); AGREEABLE & COOPERATIVE W/ P.T. NO C/O PAIN OR DIZZINESS; (R)HAND CAST INTACT; ON OXYMIZER 5LPM. O:BED MOBILITY: MOD/MIN ASSIST IN SUPINE TO SIT TRANSFERS: MIN ASSIST IN SIT TO STAND W/ FWW GAIT: MOD/MIN ASSIST W/ FWW X 16 FT, DAUGHTER PRESENT, UNABLE TO AMBU FARTHER DUE TO FATIGUE Pt AGREED TO SIT UP IN RECL CHAIR AT BEDSIDE, CALL MISHRA, PHONE, TABLE IN REACH; RE APPLIED O2 OXYMIZER @5LPM; APPRECIATIVE. A:Pt DEMO GOOD RESPONSE TO P.T. SESSION; FALL RISK; REDUCED PACE GAIT; Pt EDUC ON SAFE GAIT, BREATHING TECH, USE OF CALL LIGHT FOR NURSE ASSIST, HEP, NEEDS REINFORCEMENT, FAIR FOLLOW THRU; BP= 107/31, 98/40, 110/38; HR=98, 106; O2 SAT ROOM AIR W/ GAIT=91% O2 SAT 5LPM=99%, 3LPM=95% P:CONT PT ONCE DAILY 5X/WK X 1 WK; POC & DX DISCUSSED W/ ENGINEER EXHAUSTER; WILL BENEFIT W/ P.T. AFTER ACUTE STAY. EVAL25 GCODES:[id number] [facility] REACH SCORE:20 inches [id number] Pt WAS GIVEN THERA EXER UE/LE SIXTO; CONT PT EX8
--- NOTE | 2016-08-25 17:31 | NUR ---
@1700: PLACED PT ON 2L NC WITH BUBBLE HUMIDIFIER FROM 3L OXYMIZER. SPO2 ON 2L NC IS 96%. NO ACUTE RESP DISTRESS NOTED. INFORMED CHARGE NURSE OF THE CHANGE IN O2 DEVICE. WILL MONITOR.
--- NOTE | 2016-08-25 18:17 | NUR ---
DR. COE AT BEDSIDE REMOVING SUTURES TO RT FOREHEAD AREA. PT TOLERATED WELL. COMFIRMED WITH MD SHE HAD RECEIVE PAGE GATE AND WAS AWARE OF LASIX BEING HELD D/T LOW DIASTOLIC B/P. CURRENT B/P IMPROVED AT 107/44 WITH MAP 65. FAMILY AT BEDSIDE, CALL LIGHT IN REACH NEEDS ATTENDED TO.
--- NOTE | 2016-08-25 19:53 | NUR ---
PT IS A/O X4, VERBAL RESPONSIVE, ABLE TO TELL WHAT SHE NEEDS. LUNG SOUND DIMINISHED BILATERAL, DENY SOB AT THIS TIME, PT IS ON 2L/MIN O2 VIA NC, PO2 97%, PT IS ON TELE 22, NSR, DENY ANY CHEST PAIN OR DISCOMFORT, BOWEL SOUND PRESENT ALL 4 QUADARNTS, NO DISTENTION, NO TENDER. PEDAL PULSE PRESENT BOTH FEET, +1 EDEMA ALL 4 EXTREMITIES, IV AT LEFT FA, NO LEAKING, NO INFILTRATION. ALL ADLS ASSIST, ALL NEED MET, CALL LIGHT IN REACH, WILL CONTINUE TO MONITOR.
--- NOTE | 2016-08-26 00:32 | NUR ---
START BLADDER TRAINING, WILL CONTINUE TO MONITOR THE PT.
--- NOTE | 2016-08-26 05:05 | NUR ---
PT IS SLEEPING, AWAKE BY TOUCH, A/O X4, VERBAL RESPONSIVE, DENY ANY RESPIRATORY DISTRESS, DENY ANY PAIN OR DISCOMFORT AT THIS MOMENT, IV AT LEFT FA, NO LEAKING, NO INFILTRATION. ALL ADLS ASSIST, ALL NEED MET, CALL LIGHT IN REACH, WILL CONTINUE TO MONITOR.
[2016-08-26 06:30] VITALS: BP 124/49
[2016-08-26 06:57] LABS: BASOPHIL % 0.5 % (0-2); PLATELET COUNT 290 x10^3mcL (130-400)
[2016-08-26 07:03] LABS: RED CELL DISTRIBUTION WIDTH 15.6 % (11.5-14.5)
[2016-08-26 07:13] LABS: CALCIUM 8.4 mg/dL (8.5-10.1); CARBON DIOXIDE 23.4 mmol/L (21-32); CHLORIDE SERUM 98 mmol/L (98-107); CREATININE SERUM 2.4 mg/dL (0.6-1.0); GLUCOSE SERUM 114 mg/dL (74-106); MAGNESIUM 1.9 mg/dL (1.8-2.4); PHOSPHOROUS 5.5 mg/dL (2.5-4.9); POTASSIUM SERUM 4.6 mmol/L (3.5-5.1); SODIUM SERUM 134 mmol/L (136-145)
--- NOTE | 2016-08-26 08:00 | NUR ---
VJ LAIRD VERBALIZED NEEDS. CALL LIGTH W/ IN REACH. REQUIRES MOD. ASSIST. W/ ADL NEEDS. ABLE TO TURN W/ ASSIST. CONT. 02 AT 2 L N/C ON W/ R.T PROTOCOL.NO ACUTE RESP. DISTRESS NOTED. WALLIS CATH. PATENT.DRAINING YELLOW COLOR URINE . CONT. IV FLUIDS ORDERED.S/PFALL FROM HOME RT HAND SHORT CAST INPLACE ABLE TO WIGLES ALL TOES.RT. UPPER EYE BROW W/ STERI STRIPS INTACT.HEALED RT. CHECKED AND RT. KNEE ABRASION .REQUIRES MOD. ASSIST. W/ ADLNEEDS. WILL CONT. PLAN OF CARE.
[2016-08-26 08:57] VITALS: BP 122/47
--- NOTE | 2016-08-26 09:00 | NUR ---
/ GLORIA Owsuu/ OTHER MEDICAL STAFF MADE ROUNDS AND UPDATED PT. PLAN OF CARE.
--- NOTE | 2016-08-26 09:38 | NUR ---
PT NOTE [phone] MEDICAL CHART REVIEWED. Pt WAS CLEARED FOR PT PER RN. Pt WAS SEEN AWAKE BUT SLEEPY SITTING ON RECLINER BY BEDSIDE, HAS JUST FINISHED BREATHING TX BY RT; DAUGHTER PRESENT IN THE ROOM AND WAS PREFERRED TO ASSIST W/COMMUNICATION VERSUS USE OF CYRACOM. Pt AGREED TO PARTCIPATE W/PT. S:REPORTS FEELING SLEEPY, DENIES PAIN ON RUE WITH CAST; C/O 8/10 PAIN ON LUE O:BP AT REST SITTING 122/47, HR 101; SaO2 96% ON 2L NC BED MOBILITY: SIT-SUPINE MIN ASSIST TRANSFERS: SIT-STAND MIN/CGA SaO2 ON ROOM AIR AT REST 92% GAIT 35 FT FWW MIN ASSIST; IV POLE AND PORT O2 IN TOW; MIN SOB NOTED REQUIRING STAND REST BREAK, INSTRUCTED ON DEEP BREATHING WITH FAIR RETURN DEMO; SLOW DANILO. SaO2 POST GAIT 98%, HR 150. THEREX FOR BOTH LE PERFORMED SITTING EOB INCLUDING LAQ, HIP ABD, AND ANKLE PUMPS; X 10 REPS EACH. Pt REQUESTED BTB, NC ON 2L RECONNECTED TO O2 UNIT ON WALL, F/C INTACT, 3 SIDERAILS UP; CALL LIGHT AND TABLE IN REACH. Pt WAS LEFT IN THE PRESENCE OF THE DAUGHTER. RN NOTIFIED. A:Pt SHOWED GOOD RESPONSE TO PT; TOLERATED GAIT USING FWW, HOWEVER SHOWED FATIGUE POST ACTIVITY. Pt CONT TO SHOW WEAKNESS REQUIRING ASSIST WITH TRANSFERS AND GAIT. P:CONT PER TX PLAN, TO CHECK O2 SAT DURING ACTIVITY; DISCUSSED W/STORAGE SPECIALIST. THEREX8 [id number] PVE(2) ASSIST W/IV POLE/PORT O2; SET-UP
--- NOTE | 2016-08-26 11:00 | NUR ---
PT. UP IN CHAIR W/ ASSIST. AT BEDSIDE.SIXTO. WELL DENIES ANY PAIN AT THIS TIME. NO ACUTE RESP. DISTRESS NOTED. CONT. 02 AT 2 L N/C ON .
[2016-08-26 13:15] VITALS: BP 119/45
--- NOTE | 2016-08-26 16:30 | NUR ---
PT. C/O PAIN IN RT. SHOULDER MEDICATED FOR PAIN ORDERED. MADE COMFORTABLE IN BED.CALL LIGHT W/ IN REACH ,DAUGHTER AT BEDSIDE.
[2016-08-26 16:50] VITALS: BP 138/55
--- NOTE | 2016-08-26 20:00 | NUR ---
RECEIVED PT IN BED AWAKE ALERT AND ORIENTED. PT IS SERBIAN AND BAHAMIAN SPEAKING. TELE # 22 SR WITH BBB , HR OF 98. PULES PALPALBE NO EDEMA NOTED. LUNG SOUNDS DIMINISHED. PT ON 02 2LITERS. BOWEL SOUNDS ACTIVE. PT HAS WALLIS, ORDER TO REMOVE FROM THIS AFTERNOON. WILL REMOVE WALLIS SHORTLY. STERI STRIPS TO THE RIGHT UPPER EYE BROW. NO C/O PAIN NOTED. IV INFUSING WELL WITH NO INFILTRATION NOTED. INFUSING NS @ 10CC/HR. NO DISTRESS NOTED. PT STABLE AT THIS TIME. DAUGHTER AT THE BEDSIDE. INSTRUCTED PT TO USE CALL LIGHT IF NEEDS ASSISTANCE WITH ANYTHING. CALL LIGHT IN REACH. WILL MONITOR.
[2016-08-26 20:40] VITALS: BP 133/53
--- NOTE | 2016-08-26 22:00 | NUR ---
ORDER FOR WALLIS CATH TO BE REMOVED THIS AFTERNOON. REMOVED WALLIS CATH AT THIS TIME.
--- NOTE | 2016-08-27 01:00 | NUR ---
PT WAS ABLE TO USE COMMODE AT BEDSIDE AND VOID FOLLOWING REMOVING THE WALLIS CATH.
--- NOTE | 2016-08-27 02:15 | NUR ---
RT IN TO SEE PT AND PT RECEIVED BREATHING TREATMENT.
--- NOTE | 2016-08-27 03:05 | NUR ---
PT C/O RIGHT SHOULDER PAIN AND RECEIVED NORCO ORDERED. WILL MONITOR PT.
--- NOTE | 2016-08-27 04:00 | NUR ---
PT RESTING MORE COMFORTABLY AND STATES SHE IS FEELING MUCH BETTER AT THIS TIME. WILL MONITOR.
[2016-08-27 05:13] VITALS: BP 139/60
--- NOTE | 2016-08-27 05:24 | NUR ---
PT CONTINUES TO REST IN BED AT THIS TIME. DAUGHTER IS AT THE BEDSIDE. PT HAS NO COMPLAINTS AT THIS , NO DISTRESS NOTED. IV INTACT WITH NO INFILTRATION NOTED. PT IS STABLE AND WILL ENDORSE TO THE A.M SHIFT NURSE.
--- NOTE | 2016-08-27 06:33 | NUR ---
CALLED FOR RT TO GIVE PT BREATHING TREATMENT. RT STATED THEY WOULD BE UP SHORTLY, MADE PT AWARE. PT AND PT DAUGHTER VERBALIZES AN UNDERSTANDING. WILL ENDORSE TO THE A.M SHIFT NURSE.
[2016-08-27 06:39] LABS: BASOPHIL % 0.5 % (0-2); PLATELET COUNT 309 x10^3mcL (130-400)
[2016-08-27 07:06] LABS: CALCIUM 8.8 mg/dL (8.5-10.1); CARBON DIOXIDE 22.5 mmol/L (21-32); CHLORIDE SERUM 96 mmol/L (98-107); GLUCOSE SERUM 206 mg/dL (74-106); PHOSPHOROUS 4.8 mg/dL (2.5-4.9); POTASSIUM SERUM 4.8 mmol/L (3.5-5.1); SODIUM SERUM 133 mmol/L (136-145)
[2016-08-27 07:11] LABS: RED CELL DISTRIBUTION WIDTH 15.4 % (11.5-14.5)
--- NOTE | 2016-08-27 07:52 | NUR ---
OX4. SITTING AT THE BEDSIDE. FAMILY IN THE ROOM. NO SOB. O2 AT 2L/NC IN USE. RW SHORT CAST IN PLACE. STERISTRIPS TO RT EYEBROW INTACT. DENIES PAIN AT THIS TIME. VERBALIZED RELIEF OF LT SHOULDER PAIN AFTER NORCO GIVEN BY LOADER OPERATOR/GROUND LEADER. IVF ONGOING ORDERED. LFA SITE PATENT. WILL CONTINUE TO MONITOR STATUS.
[2016-08-27 10:53] VITALS: BP 104/46
--- NOTE | 2016-08-27 12:29 | NUR ---
PT'S DAUGHTER REQUESTS FOR PAIN MED (NORCO PREFERRED) BEC. "SHE HAS INTERNAL PAIN AND SHE GETS SHORT OF BREATH, IT USUALLY HAPPENS WHEN SHE GETS OUT OF HER PAIN MED". NORCO GIVEN ORDERED; RESP THERAPIST IS HERE TO ADMINISTER BREATHING TX.
[2016-08-27 13:40] VITALS: BP 129/55
--- NOTE | 2016-08-27 15:42 | NUR ---
PT NOTES TIME: [id number] TE3',TA10',GT10' S:CHART REVIEWED AND CLEARED FOR PT BY RN. PATIENT SITTING UP AT EOB RESTING WITH DAUGHTER AT BEDSIDE. PATIENT DENIES PAIN OR SOB AT THIS TIME. N/C @2LPM IN PLACE, IV LINE INTACT. O:BED: MIN SIT<->SUPINE WITH VC'S AND TC'S FOR PACING AND SEQUENCING VIA LONG SIT PIVOT. TRANSFER: CGA SIT<->STAND WITH FWW AND VC'S FOR PROPER HAND PLACEMENT FOR PUSH OFF D/T R UE SHORT CAST. NO DIZZINESS EXPRESSED, BUT IS SLOW TO TASK. GAIT: MIN/CGA FWW 16'x2 WITH 1 SEATED BREAK. PATIENT ON RA WITH RT STAFF AT SIDE MEASURING PATIENTS SAT LEVEL. PATIENT RANGING IN LOW-MIN 80'S AND ENCOURAGED PLB TECH AND RELAXATION TECHNIQUES. NO DIZZINESS EXPRESSED, BUT EXPRESSED 8/10 FATIGUE BASED ON VERITO RPE SCALE. TE: SEATED KNEE EXT/FLEX WITH ANKLE DF/PF. (ALL TOLERATED WITH PLB TECH INCLUDED). PATIENT EDUCATED WITH PLB TECH, ENERGY CONSERVATION, TRANSFER SAFETY/PACING WITH GOOD FOLLOW THRU. PATIENT AND DAUGHTER COOPERATIVE AND APPRECIATIVE OF PT CARE, RN MADE AWARE. TRAY AND CALL LIGHT IN REACH. P:CONT WITH POC, PROGRESS DISCUSSED WITH PRIMARY PT.
--- NOTE | 2016-08-27 16:05 | NUR ---
CALLED TO Pt'S ROOM FOR A BREATHING TX. Pt COMPLAINING OF PAIN AND SOB. BREATHING TX GIVEN AT THIS TIME. NORCO GIVEN TO Pt SHORTLY AFTER. Pt STARTED TO HYPERVENTILATE AND BECAME CLAMY. O2 DROPPPED TO 89%, FIO2 INCREASED TO 36% @ 4LPM VIA NC. HR 116, BP 124/68. Pt APPEARED TO BE HAVING ANXIETY AND SLOWLY CALMED DOWN. RN'S AND FAMILY NOTIFIED TO CALL ME. WILL MONITOR.
--- NOTE | 2016-08-27 16:20 | NUR ---
PT'S DAUGHTER CALLED AND REQUESTED FOR NORCO FOR PAIN AND FOR SOB. RT IN THE ROOM ABOUT TO GIVE THE BREATHING TREATMENT. PT APPEARS ANXIOUS AND SOB. GREENS CUTTER JANE ALSO IN THE ROOM TO ASSESS PT. VITAL SIGNS TAKEN. INITIAL SAT IS HIGH 80'S AND SLOWLY WENT UP TO 96 AFTER 02 INCREASED TO 4L/NC. BP IS 124/68. HR 100-111. ACCUCHECK IS 331.
--- NOTE | 2016-08-27 16:57 | NUR ---
Pt APPEARS AND CLAIMS TO FEEL BETTER. O2 99% WITH UNLABORED BREATHING. FIO2 TITRATED ABCK DOWN TO 32% @ 3LPM. FAMILY AT BEDSIDE. WILL CONTINUE TO MONITOR.
--- NOTE | 2016-08-27 17:02 | NUR ---
PER RESPIRATORY THERAPIST, O2 DECREASED TO 3L/NC. PT IS RELAXED. WILL CONTINUE TO MONITOR STATUS.
--- NOTE | 2016-08-27 17:05 | NUR ---
DR. COE IN THE ROOM AT THIS TIME WITH MORTGAGE LOAN FUNDERDARRIUS.
--- NOTE | 2016-08-27 18:37 | NUR ---
NOT IN ANY DISTRESS. ON HIGH FOWLERS WHILE BEING FED BY DAUGHTER. WILL CONTINUE TO MONITOR STATUS.
--- NOTE | 2016-08-27 19:48 | NUR ---
PT CURRENTLY RESTING IN BED, NO ACUTE DISTRESS. A/O X4. TELE #22 SHOWING SINUS RHYTHM W/ BBB, DENIES CHEST PAIN. PULSES PALPABLE IN ALL EXTREMITIES, TRACE EDEMA NOTED TO RIGHT HAND. LUNG SOUNDS DIMINISHED BILATERALLY, WHEEZING NOTED, NO ACUTE RESPIRATORY DISTRESS NOTED. BOWEL SOUNDS ACTIVE, LAST BM 08/25/16. VOIDING WELL. GENERALIZED WEAKNESS NOTED. CAST TO RIGHT FOREARM NOTED. RIGHT KNEE ABRASION OIL WELL SERVICE OPERATOR, RIGHT EYEBROW STERI STRIPS CDI. DENIES PAIN AT THIS TIME. IV PATENT AND INTACT. BED IN LOWEST POSITION, SIDE RAILS UP X2, CALL LIGHT WITHIN REACH. WILL CONTINUE TO MONITOR.
--- NOTE | 2016-08-27 20:06 | NUR ---
PT BREATHING HAS BECOME LABORED, AUDIBLE WHEEZING NOTED. RT NOTIFIED FOR BREATHING TREATMENT.
[2016-08-27 21:26] VITALS: BP 142/59
[2016-08-28 06:07] VITALS: BP 136/62
[2016-08-28 06:11] LABS: CALCIUM 9.4 mg/dL (8.5-10.1); CARBON DIOXIDE 25.2 mmol/L (21-32); CHLORIDE SERUM 98 mmol/L (98-107); CREATININE SERUM 1.7 mg/dL (0.6-1.0); GLUCOSE SERUM 94 mg/dL (74-106); MAGNESIUM 2.2 mg/dL (1.8-2.4); POTASSIUM SERUM 4.6 mmol/L (3.5-5.1); SODIUM SERUM 133 mmol/L (136-145)
[2016-08-28 06:12] LABS: BASOPHIL % 0.4 % (0-2); PLATELET COUNT 300 x10^3mcL (130-400)
[2016-08-28 06:31] LABS: RED CELL DISTRIBUTION WIDTH 15.9 % (11.5-14.5)
--- NOTE | 2016-08-28 06:45 | NUR ---
PT SLEPT PERIODICALLY THROUGHOUT NIGHT. NO ACUTE DISTRESS. ALL NEEDS MET AND ATTENDED TO. NO SIGNIFICANT CHANGES. IV PATENT AND INTACT. BED IN LOWEST POSITION, SIDE RAILS UP X2, CALL LIGHT WITHIN REACH. WILL ENDORSE CARE TO ONCOMING NURSE.
--- NOTE | 2016-08-28 07:35 | NUR ---
RECEIVED PT LAYING IN BED EYES CLOSED. DAUGHTER AT BEDSIDE STATED THAT PT IS EXPERIENCING DISCOMFORT. GIVEN NORCO PRN PO. IV SITE PATENT AND INFUSING WELL, INFORMATION BOARD UPDATED ALLERGY BAND AND ID BRACLET ON AND VERIFIED. CALL LIGHT WITHIN REACH. WILL CONTINUE TO MONITOR
[2016-08-28 09:44] VITALS: BP 125/47
--- NOTE | 2016-08-28 09:44 | NUR ---
PT CURRENTLYRESTING IN BED ASLEEP. FAMILY AT BEDSIDE. NO APPARENT SIGNS OF ACUTE DISTRESS NOTED AT THIS TIME. IV INFUSING WELL. CALL LIGHT WITHIN REACH. WILL CONTINUE TO MONITOR
[2016-08-28 14:01] VITALS: BP 125/40
--- NOTE | 2016-08-28 14:42 | NUR ---
PT RESTING IN BED EYES CLOSED. FAMILY MEMEBER AT BEDSIDE. NO APPARENT SIGNS OF ACUTE DISTRESS NOTED AT THIS TIME. IV INFUSING WELL. CALL LIGHT WITHIN REACH. WILL CONTINUE TO MONITOR
[2016-08-28 18:00] VITALS: BP 129/42
--- NOTE | 2016-08-28 19:15 | NUR ---
PT CURRENTLY RESTING IN BED, NO ACUTE DISTRESS. A/O X4. TELE #22 SHOWING SINUS RHYTHM W/ BBB, DENIES CHEST PAIN. PULSES PALPABLE IN ALL EXTREMITIES, TRACE EDEMA NOTED IN RIGHT HAND. LUNG SOUNDS DIMINISHED BILATERALLY, WHEEZING BILATERALLY, BREATHING UNLABORED, NO RESPIRATORY DISTRESS NOTED. BOWEL SOUNDS ACTIVE, LAST BM 08/28/16. VOIDING WELL. GENERALIZED WEAKNESS NOTED. RIGHT KNEE ABRASION, RIGHT EYEBROW STERI STRIPS. DENIES PAIN AT THIS TIME. BED IN LOWEST POSITION, SIDE RAILS UP X2, CALL LIGHT WITHIN REACH. WILL CONTINUE TO MONITOR.
[2016-08-28 21:08] VITALS: BP 130/50
--- NOTE | 2016-08-29 02:25 | NUR ---
PT CURRENTLY RESTING IN BED, NO ACUTE DISTRESS. WILL CONTINUE TO MONITOR.
[2016-08-29 05:42] VITALS: BP 121/46
--- NOTE | 2016-08-29 06:30 | NUR ---
PT SLEPT PERIODICALLY THROUGHOUT NIGHT. NO ACUTE DISTRESS. ALL NEEDS MET AND ATTENDED TO. NO SIGNIFICANT CHANGES. MEDICATED PAIN PER EMAR. IV PATENT AND INTACT. BED IN LOWEST POSITION, SIDE RAILS UP X2, CALL LIGHT WITHIN REACH. WILL ENDORSE CARE TO ONCOMING NURSE.
--- NOTE | 2016-08-29 07:30 | NUR ---
RECEIVED PT IN BED ALERT AND ORIENTED X4. NSR WITH BBB ON TELE MONITOR. DENIES CHEST PAIN. BREATHING EVEN AND UNLABORED WITH O2 VIA NC AT 2L. NO SOB. LUNG SOUNDS DIMINISHED. DENIES ABD PAIN OR N/V/D. VOIDS FREELY. GENERALIZED WEAKNESS. PT GETS UP TO BSC WITH ASSISTANCE. CAST NOTED TO R FOREARM. ABRASION TO R KNEE, YARD SWITCH OPERATOR. HEALING LACERATION TO R EYEBROW WITH STERISTRIPS CDI. TRACE EDEMA NOTED TO R HAND, PT DENIES NUMBNESS, TINGLING OR PAIN. 1+ EDEMA NOTED TO BLE. DAUGHTER AT BEDSIDE. INSTRUCTED TO USE CALL LIGHT WHEN IN NEED OF ANY ASSISTANCE.
[2016-08-29 10:12] VITALS: BP 112/43
--- NOTE | 2016-08-29 11:30 | NUR ---
NORCO PO GIVEN FOR PTS COMPLAINT OF GENERALIZED ACHING PAIN. NO SOB NOTED. SITTING UP IN CHAIR. DAUGHTER AT BEDSIDE.
[2016-08-29] MEDS ORDERED: LASIX40 MG PO (11:36)
[2016-08-29] MEDS ORDERED: ATIVAN0.5 M1 PO (11:40)
[2016-08-29 12:59] LABS: CALCIUM 9.1 mg/dL (8.5-10.1); CARBON DIOXIDE 26.7 mmol/L (21-32); CHLORIDE SERUM 97 mmol/L (98-107); CREATININE SERUM 1.6 mg/dL (0.6-1.0); GLUCOSE SERUM 321 mg/dL (74-106); POTASSIUM SERUM 4.3 mmol/L (3.5-5.1); SODIUM SERUM 132 mmol/L (136-145)
--- NOTE | 2016-08-29 14:15 | NUR ---
PT NOTES TIME: [id number] TE8',TA12',GT18',PVE((1)STANDBY SAFETY) S:CHART REVIEWED AND CLEARED FOR PT BY RN. PATIENT SITTING UP IN RECLINER CHAIR WITH DAUGHTER AT BEDSIDE. PATIENT DENIES PAIN OR SOB AT THIS TIME AND EAGER TO PARTICIPATE IN THERAPY. IV LINE INTACT, N/C @2LPM IN PLACE. R HARD CAST IN PLACE. O:BED: N/T D/T PATIENT WANTING TO SIT UP IN RECLINER CHAIR. TRANSFER: MIN/CGA SIT<->STAND WITH VC'S AND TC'S PROVIDED FOR PROPER HAND PLACEMENT AND SEQUENCING WITH FWW. NO DIZZINESS EXPRESSED. BP IN SITTING 131/54 SPO2 N/C @2LPM 96%. GAIT: CGA 30'x2 WITH FWW (IV POLE AND PORT O2 TANK @2LPM IN TOW). 1 SEATED REST BREAK TAKEN FOR ENERGY CONSERVATION AND PACING. OCCASIONAL REMINDER ON PROPER POSTURAL AWARENESS, MAINTAINING FORWARD GAZE DURING GAIT AND PLB TECH FOR IMPROVED ENERGY CONSERVATION TECHNIQUES. NO LOB PRESENTED, BUT CONTINUES TO MAINTAIN SLOW DANILO. TE: SEATED KNEE EXT/FLEX WITH ANKLE DF/PF, SHOULDER SHRUGS/CIRCLES, SCAPULAR RETRACTION/PROTRACTION, GLUTEAL SETS. (ALL TOLERATED). PATIENT EDUCATED WITH ENERGY CONSERVATION TECHNIQUES, POSTURAL AWRENESS, HEP AND PACING WITH GOOD FOLLOW THRU. PATIENT AND DAUGHTER COOPERATIVE AND APPRECIATIVE OF PT CARE, RN MADE AWARE. P:CONT WITH POC, PROGRESS DISCUSSED WITH PRIMARY PT.
[2016-08-29 14:47] VITALS: BP 118/44
[2016-08-29 16:34] VITALS: BP 118/44
--- NOTE | 2016-08-29 18:09 | NUR ---
PT SITTING UP IN CHAIR, ABLE TO GET UP FROM BED TO CHAIR WITH ASSISTANCE FAIRLY WELL. NO SOB NOTED ON O2 VIA NC AT 2L. NO COMPLAINTS OF PAIN AT THIS TIME. WAITING FOR DELIVERY OF NEBULIZER AND WALKER BEFORE DISCHARGE.
--- NOTE | 2016-08-29 19:02 | NUR ---
DISCHARGE INSTRUCTIONS AND PRESCRIPTIONS EXPLAINED AND GIVEN TO PT AND PTS DAUGHTER FRIDA MENDOZA. VERBALIZED UNDERSTANDING. WAITING FOR NEBULIZER AND WALKER BEFORE DISCHARGE.
--- NOTE | 2016-08-29 21:11 | NUR ---
PT C/O PAIN. GAVE PT NORCO PO. PT TOLERATED IT WELL. WILL CONTINUE TO MONITOR.
--- NOTE | 2016-08-29 21:45 | NUR ---
PT AWAKE AND ALERT. NO C/O PAIN THUS FAR. IV TAKEN OF ON THE LEFT FOREARM. PT DISCHARGED VIA WHEELCHAIR ACCOMPANIED BY THE DAUGHTER AND THE DIRECTOR DATA PROCESSING. PT WITH O2 VIA NASAL CANNULA AT 2L. PT TOLERATING IT WELL.
== END 2016-08-29 21:45 | disposition home health service (06) | DRG 291 ==
LOC: ED 21:04 → DU 08-19 00:11 → IC 08-19 00:11 → DU 08-19 00:11 → IC 08-23 23:47 → DU 08-24 15:33 → MU 08-29 08:29
PROVIDERS: Emergency Medicine; Family Medicine; Internal Medicine Interventional Cardiology; ADMIT Family Medicine
DX: I13.0 Hypertensive heart and chronic kidney disease with heart failure and stage 1 through stage 4 chronic kidney disease, or unspecified chronic kidney disease (principal); J96.01 Acute respiratory failure with hypoxia; N17.0 Acute kidney failure with tubular necrosis; E43 Unspecified severe protein-calorie malnutrition; I50.43 Acute on chronic combined systolic (congestive) and diastolic (congestive) heart failure; E87.1 Hypo-osmolality and hyponatremia; N39.0 Urinary tract infection, site not specified; D68.69 Other thrombophilia; I24.8 Other forms of acute ischemic heart disease; I42.0 Dilated cardiomyopathy; E11.65 Type 2 diabetes mellitus with hyperglycemia; E11.21 Type 2 diabetes mellitus with diabetic nephropathy; E11.40 Type 2 diabetes mellitus with diabetic neuropathy, unspecified; N18.3 Chronic kidney disease, stage 3 (moderate); I27.2 Other secondary pulmonary hypertension; B96.20 Unspecified Escherichia coli [E. coli] as the cause of diseases classified elsewhere; E04.9 Nontoxic goiter, unspecified; R80.8 Other proteinuria; E83.51 Hypocalcemia; E83.42 Hypomagnesemia; D64.9 Anemia, unspecified; R31.9 Hematuria, unspecified; E78.5 Hyperlipidemia, unspecified; K21.9 Gastro-esophageal reflux disease without esophagitis; Z68.29 Body mass index [BMI] 29.0-29.9, adult; Z79.84 Long term (current) use of oral hypoglycemic drugs
CPT/HCPCS: 36600; 78598; 82962; 83880; 84439; 85378; 94150; 97110-GP; 97116-GP; 97164; 97530-GP; A9500; A9540; J1642; J1644; J1815; J1885; J1940; J2405; J2785; J3475; J3490; J7030; J7040; J7620; J7644; Q0092

== ENCOUNTER 2017-04-30 11:46 | Inpatient (IN) | payer OTHER ==
[~2017-04-30] VITALS: Ht 152.4 cm; Wt 50.6 kg
[~2017-04-30 11:46] MED LIST changes: +ATIVAN0.5 M1 PO; +LASIX40 MG PO
[2017-04-30 13:30] LABS: PLATELET COUNT 265 x10^3mcL (130-400)
[2017-04-30 13:35] LABS: RED CELL DISTRIBUTION WIDTH 15.1 % (11.5-14.5)
[2017-04-30 13:42] LABS: BAND NEUTROPHIL 3 % (0-10); MONOCYTE 2 % (0-7); SEGMENTED NEUTROPHILS 93 % (37-75); rbc morphology (normal/abnorm) NORMAL (NORMAL)
[2017-04-30 13:44] LABS: ALKALINE PHOSPHATASE 170 U/L (46-116); ALT/SGPT 11 U/L (14-59); AST/SGOT 32 U/L (15-37); BILIRUBIN TOTAL 0.7 mg/dL (0.20-1.00); CALCIUM 8.6 mg/dL (8.5-10.1); CARBON DIOXIDE 21.4 mmol/L (21-32); CHLORIDE SERUM 94 mmol/L (98-107); GLUCOSE SERUM 100 mg/dL (74-106); POTASSIUM SERUM 3.8 mmol/L (3.5-5.1); SODIUM SERUM 135 mmol/L (136-145); TOTAL PROTEIN, SERUM 7.4 g/dL (6.4-8.2)
[2017-04-30 13:46] LABS: ALBUMIN 2.1 g/dL (3.4-5.0)
[2017-04-30 13:49] LABS: CREATININE SERUM 5.5 mg/dL (0.6-1.0)
[2017-04-30 13:51] LABS: CK-MB < 0.5 ng/mL (0-3.6); CREATINE KINASE 11 U/L (26-192)
[2017-04-30 15:02] LABS: microscopic required? YES; urine erythrocyte 2+ (NEGATIVE)
[2017-04-30 16:06] VITALS: BP 113/41
[2017-04-30 16:16] LABS: MAGNESIUM 2.7 mg/dL (1.8-2.4)
[2017-04-30 16:19] LABS: CHOLESTEROL/HDL RATIO 8.3
[2017-04-30 16:27] LABS: FREE T4 0.43 ng/dL (0.76-1.46)
[2017-04-30 16:28] LABS: T3 TOTAL 0.15 ng/mL
[2017-04-30 16:31] LABS: T4(THYROXINE) 2.8 ug/dL (4.7-13.3)
[2017-04-30] MEDS ORDERED: ARICEPT10 MG PO (17:26)
[2017-04-30 21:37] VITALS: BP 120/41
[2017-04-30 22:05] LABS: IRON 14 ug/dL (50-170); TOTAL IRON BINDING CAPACITY 162 ug/dL (250-450)
[2017-05-01 05:20] VITALS: BP 121/47
[2017-05-01 06:37] LABS: CALCIUM 8.2 mg/dL (8.5-10.1); CARBON DIOXIDE 19.4 mmol/L (21-32); CHLORIDE SERUM 101 mmol/L (98-107); LACTIC DEHYDROGENASE (LDH) 147 U/L (100-190); LIPASE 867 IU/L (73-393); MAGNESIUM 2.5 mg/dL (1.8-2.4); POTASSIUM SERUM 3.4 mmol/L (3.5-5.1); SODIUM SERUM 140 mmol/L (136-145)
[2017-05-01 07:10] LABS: AMYLASE 288 U/L (25-115)
[2017-05-01 07:15] LABS: GLUCOSE SERUM 55 mg/dL (74-106)
[2017-05-01 07:41] LABS: PLATELET COUNT 276 x10^3mcL (130-400); RED BLOOD CELLS 2.48 M/mm3 (4.10-5.10)
[2017-05-01 07:43] LABS: RED CELL DISTRIBUTION WIDTH 15.7 % (11.5-14.5)
[2017-05-01 10:02] VITALS: BP 115/37
[2017-05-01 10:21] LABS: BAND NEUTROPHIL 11 % (0-10); BASOPHIL 0 % (0-2); MONOCYTE 3 % (0-7); SEGMENTED NEUTROPHILS 82 % (37-75)
[2017-05-01 10:23] LABS: PLATELET MORPHOLOGY LARGE PLATELET SEEN; rbc morphology (normal/abnorm) ABNORMAL (NORMAL); tear drop cell (dacryocyte) 1+
[2017-05-01 12:37] VITALS: BP 96/30
[2017-05-01 18:00] VITALS: BP 122/50
[2017-05-01 21:28] VITALS: BP 137/28
[2017-05-02 04:03] LABS: ALKALINE PHOSPHATASE 158 U/L (46-116); ALT/SGPT 8 U/L (14-59); AST/SGOT 28 U/L (15-37); BILIRUBIN TOTAL 0.51 mg/dL (0.20-1.00); CALCIUM 8.2 mg/dL (8.5-10.1); CARBON DIOXIDE 16.5 mmol/L (21-32); CHLORIDE SERUM 108 mmol/L (98-107); GLUCOSE SERUM 168 mg/dL (74-106); MAGNESIUM 2.1 mg/dL (1.8-2.4); PHOSPHOROUS 3.4 mg/dL (2.5-4.9); POTASSIUM SERUM 3.8 mmol/L (3.5-5.1); SODIUM SERUM 140 mmol/L (136-145); TOTAL PROTEIN, SERUM 6.3 g/dL (6.4-8.2)
[2017-05-02 04:09] LABS: BASOPHIL % 0.6 % (0-2); PLATELET COUNT 322 x10^3mcL (130-400); RED CELL DISTRIBUTION WIDTH 14.4 % (11.5-14.5)
[2017-05-02 04:17] LABS: ALBUMIN 1.7 g/dL (3.4-5.0)
[2017-05-02 04:29] LABS: AMPHETAMINE QUAL UR NONE DETECTED (NEG <=1000)
[2017-05-02 06:06] VITALS: BP 116/46
[2017-05-02 09:41] VITALS: BP 125/44
[2017-05-02 14:01] VITALS: BP 108/39
[2017-05-02 17:14] VITALS: BP 106/40
[2017-05-02 21:44] VITALS: BP 129/51
[2017-05-03 06:04] VITALS: BP 123/49
[2017-05-03 08:33] LABS: PLATELET COUNT 329 x10^3mcL (130-400)
[2017-05-03 08:34] LABS: RED CELL DISTRIBUTION WIDTH 15.6 % (11.5-14.5)
[2017-05-03 09:10] LABS: CALCIUM 8.8 mg/dL (8.5-10.1); CARBON DIOXIDE 17.4 mmol/L (21-32); CHLORIDE SERUM 111 mmol/L (98-107); GLUCOSE SERUM 257 mg/dL (74-106); MAGNESIUM 1.7 mg/dL (1.8-2.4); PHOSPHOROUS 3.2 mg/dL (2.5-4.9); POTASSIUM SERUM 4.5 mmol/L (3.5-5.1); SODIUM SERUM 142 mmol/L (136-145)
[2017-05-03 10:09] VITALS: BP 131/55
[2017-05-03 12:15] LABS: BAND NEUTROPHIL 6 % (0-10); BASOPHIL 0 % (0-2); MONOCYTE 4 % (0-7); SEGMENTED NEUTROPHILS 83 % (37-75)
[2017-05-03 12:18] LABS: burr cell (echinocyte) 1+; rbc morphology (normal/abnorm) ABNORMAL (NORMAL)
[2017-05-03 15:22] VITALS: BP 107/38
[2017-05-03 16:04] LABS: PLATELET COUNT 317 x10^3mcL (130-400)
[2017-05-03 16:06] LABS: RED CELL DISTRIBUTION WIDTH 16.4 % (11.5-14.5)
[2017-05-03 16:20] LABS: BAND NEUTROPHIL 5 % (0-10); BASOPHIL 0 % (0-2); MONOCYTE 3 % (0-7); SEGMENTED NEUTROPHILS 85 % (37-75)
[2017-05-03 16:21] LABS: burr cell (echinocyte) 1+; rbc morphology (normal/abnorm) ABNORMAL (NORMAL)
[2017-05-03 17:12] VITALS: Ht 152.4 cm; Wt 50.6 kg
[2017-05-03 18:18] VITALS: BP 117/35
[2017-05-03 21:32] VITALS: BP 116/41
[2017-05-04 06:12] VITALS: BP 122/81
[2017-05-04 09:27] VITALS: BP 122/50
[2017-05-04 11:06] LABS: PLATELET COUNT 308 x10^3mcL (130-400)
[2017-05-04 11:22] LABS: RED CELL DISTRIBUTION WIDTH 15.5 % (11.5-14.5)
[2017-05-04 11:36] LABS: BAND NEUTROPHIL 4 % (0-10); MONOCYTE 1 % (0-7); SEGMENTED NEUTROPHILS 90 % (37-75); rbc morphology (normal/abnorm) NORMAL (NORMAL)
[2017-05-04 12:19] LABS: CALCIUM 8.3 mg/dL (8.5-10.1); CARBON DIOXIDE 13.3 mmol/L (21-32); CHLORIDE SERUM 112 mmol/L (98-107); CREATININE SERUM 2.3 mg/dL (0.6-1.0); GLUCOSE SERUM 232 mg/dL (74-106); MAGNESIUM 1.6 mg/dL (1.8-2.4); PHOSPHOROUS 3.1 mg/dL (2.5-4.9); POTASSIUM SERUM 4.1 mmol/L (3.5-5.1); SODIUM SERUM 141 mmol/L (136-145)
[2017-05-04 14:02] VITALS: BP 120/42
[2017-05-04 21:51] VITALS: BP 119/45
[2017-05-05 05:15] VITALS: BP 110/46
[2017-05-05 08:19] LABS: CALCIUM 8.8 mg/dL (8.5-10.1); CARBON DIOXIDE 14.5 mmol/L (21-32); CHLORIDE SERUM 111 mmol/L (98-107); CREATININE SERUM 2.3 mg/dL (0.6-1.0); GLUCOSE SERUM 254 mg/dL (74-106); MAGNESIUM 2.3 mg/dL (1.8-2.4); PHOSPHOROUS 4.5 mg/dL (2.5-4.9); POTASSIUM SERUM 4.1 mmol/L (3.5-5.1); SODIUM SERUM 140 mmol/L (136-145)
[2017-05-05 09:21] VITALS: BP 115/46
[2017-05-05 09:41] LABS: PLATELET COUNT 403 x10^3mcL (130-400); RED CELL DISTRIBUTION WIDTH 15.9 % (11.5-14.5)
[2017-05-05 11:49] LABS: BAND NEUTROPHIL 5 % (0-10); METAMYELOCTE 1 % (0-2); MONOCYTE 3 % (0-7); SEGMENTED NEUTROPHILS 84 % (37-75); rbc morphology (normal/abnorm) ABNORMAL (NORMAL)
[2017-05-05] MEDS ORDERED: LASIX20 MG PO (13:13)
[2017-05-05] MEDS ORDERED: ELIQUIS2.5 MG PO (13:17)
[2017-05-05 14:00] VITALS: BP 108/45
== END 2017-05-05 17:53 | disposition hospice, home (50) | DRG 871 ==
LOC: ED 11:46 → DU 14:31
PROVIDERS: Emergency Medicine; Family Medicine; Internal Medicine Nephrology; ADMIT Student in an Organized Health Care Education/Training Program
DX: A41.51 Sepsis due to Escherichia coli [E. coli] (principal); J69.0 Pneumonitis due to inhalation of food and vomit; K85.90 Acute pancreatitis without necrosis or infection, unspecified; N17.0 Acute kidney failure with tubular necrosis; J96.00 Acute respiratory failure, unspecified whether with hypoxia or hypercapnia; N39.0 Urinary tract infection, site not specified; E87.1 Hypo-osmolality and hyponatremia; E87.2 Acidosis; I82.412 Acute embolism and thrombosis of left femoral vein; R65.20 Severe sepsis without septic shock; E11.65 Type 2 diabetes mellitus with hyperglycemia; E11.51 Type 2 diabetes mellitus with diabetic peripheral angiopathy without gangrene; E83.41 Hypermagnesemia; E86.0 Dehydration; M81.0 Age-related osteoporosis without current pathological fracture; N28.1 Cyst of kidney, acquired; I44.7 Left bundle-branch block, unspecified; I12.9 Hypertensive chronic kidney disease with stage 1 through stage 4 chronic kidney disease, or unspecified chronic kidney disease; E11.22 Type 2 diabetes mellitus with diabetic chronic kidney disease; N18.3 Chronic kidney disease, stage 3 (moderate); D63.8 Anemia in other chronic diseases classified elsewhere; K21.9 Gastro-esophageal reflux disease without esophagitis; Z79.82 Long term (current) use of aspirin; Z68.21 Body mass index [BMI] 21.0-21.9, adult; Z79.84 Long term (current) use of oral hypoglycemic drugs; Z16.24 Resistance to multiple antibiotics; Z66 Do not resuscitate
CPT/HCPCS: 36600; 82962; 83880; 84439; 87804; 97110-GP; 97530-GP; J0696; J1644; J1815; J1940; J1956; J2405; J2916; J3475; J3480; J3490; J7030; J7042; J7050; J7620; Q0092